=== PATIENT | male | born 1975 | race African-American/Black ===

== ENCOUNTER 2021-04-01 03:28 | Inpatient (IN) | payer MEDICAID ==
[~2021-04-01] VITALS: Ht 172.7 cm; Wt 167.5 kg
[2021-04-01] MEDS ORDERED: MORPHINE SULFATE 4 MG/ML CPJ (NOT FOR IM USE) IV STA (03:57)
[2021-04-01] MEDS ORDERED: ACETAMINOPHEN 325MG TABLET PO STA (03:57)
[2021-04-01] MEDS ORDERED: ONDANSETRON HCL 4MG/2ML INJ IV STA (03:57)
[2021-04-01] MEDS ORDERED: SODIUM CHLORIDE 0.9% 1,000 ML IV ONE (04:00)
[2021-04-01] MEDS ORDERED: VANCOMYCIN 1 G PREMIX 200 ML IV ONE (04:00)
[2021-04-01] MEDS ORDERED: PIPERACILLIN/TAZ 3.375G PREMIX 50 ML IV ONE (04:00)
[2021-04-01 04:28] LABS: BASOPHILS % 0.6 % (0.0-2.0); HEMATOCRIT. 35.2 % (42.0-52.0); HEMOGLOBIN. 11.4 g/dL (14.0-18.0); LYMPHOCYTES % 7.2 % (20.0-50.0); MEAN CORPUSCULAR HEMOGLOBIN 24.5 pg (28.0-32.0); MEAN CORPUSCULAR VOLUME 75.7 fL (80.0-94.0); MEAN PLATELET VOLUME 8.2 fl (7.4-10.4); MONOCYTES % 10.2 % (2.0-8.0); PLATELET 365 x1000/uL (130-400); RED BLOOD CELL COUNT 4.65 mill/uL (4.7-6.1); RED CELL DISTRIBUTION WIDTH 17.9 % (11.6-14.6)
[2021-04-01 04:36] LABS: INR 1.2; PROTHROMBIN TIME 12.3 sec (9.6-11.0)
[2021-04-01 05:07] LABS: CHLORIDE 92 mEq/L (98-107)
[2021-04-01 08:30] VITALS: BP 117/83
[2021-04-01 10:00] VITALS: BP 136/76
[2021-04-01] MEDS ORDERED: ONDANSETRON HCL 4MG/2ML INJ IV PRN (10:00)
[2021-04-01] MEDS ORDERED: DEXTROSE 50% WATER 50ML SYRINGE IV PRN (10:00)
[2021-04-01 10:50] LABS: CREATINE KINASE 400 IU/L (39-308)
[2021-04-01 12:00] VITALS: BP 142/87
[2021-04-01] MEDS ORDERED: PIPERACILLIN/TAZOBACTAM 3.375 G in DEXTROSE 5% WATER 50 ML IV SCH (12:00)
[2021-04-01] MEDS: SODIUM CHLORIDE 0.9% 1,000 ML IV SCH (12:29)
[2021-04-01] MEDS: BLOOD SUGAR DIAGNOSTIC STRIP TEST SCH ×3 (13:15→20:34)
[2021-04-01] MEDS: INSULIN LISPRO 100 UNITS/ML SUBCUT SCH ×3 (13:19→21:04)
[2021-04-01] MEDS: VANCOMYCIN 2,000 MG in DEXT 5% WATER 500 ML IV SCH ×2 (13:20→21:01)
[2021-04-01 16:00] VITALS: BP 130/84
[2021-04-01] MEDS ORDERED: CEFTRIAXONE 2 G PREMIX 50 ML IV SCH (17:45)
[2021-04-01] MEDS: HYDROCODONE/ACETAMINOPHEN 10/325MG TABLET PO PRN (19:31)
[2021-04-01 20:00] VITALS: BP 150/84
[2021-04-01] MEDS: CEFTRIAXONE 2 G in DEXTROSE 5% WATER 50 ML IV SCH (20:53)
[2021-04-01] MEDS: ACETAMINOPHEN 325MG TABLET PO PRN (20:53)
[2021-04-01] MEDS: INSULIN GLARGINE UD 100 UNITS/ML SYR SUBCUT SCH (21:03)
[2021-04-01] MEDS: LORAZEPAM 2MG/ML CPJ IV PRN (21:39)
[2021-04-02] VITALS: BP 129/71
[2021-04-02] MEDS: LORAZEPAM 2MG/ML CPJ IV PRN (03:58)
[2021-04-02 04:00] VITALS: BP_SYST 110; BP_SYST 156; BP_DIAS 60; BP_DIAS 80
[2021-04-02] MEDS: HYDROCODONE/ACETAMINOPHEN 10/325MG TABLET PO PRN ×2 (04:12→21:07)
[2021-04-02 06:08] LABS: HEMATOCRIT. 32.4 % (42.0-52.0); HEMOGLOBIN. 10.6 g/dL (14.0-18.0); MEAN CORPUSCULAR VOLUME 76.3 fL (80.0-94.0); MEAN PLATELET VOLUME 8.2 fl (7.4-10.4); PLATELET 321 x1000/uL (130-400); RED BLOOD CELL COUNT 4.25 mill/uL (4.7-6.1); RED CELL DISTRIBUTION WIDTH 18.3 % (11.6-14.6)
[2021-04-02] MEDS: BLOOD SUGAR DIAGNOSTIC STRIP TEST SCH ×4 (07:20→20:58)
[2021-04-02] MEDS: INSULIN LISPRO 100 UNITS/ML SUBCUT SCH ×4 (07:50→21:05)
[2021-04-02 08:00] VITALS: BP 148/90
[2021-04-02 08:46] LABS: CLARITY URINE CLOUDY (CLEAR); COLOR URINE YELLOW (YELLOW); KETONES URINE TRACE (NEGATIVE); LEUKOCYTE ESTERASE URINE NEGATIVE (NEGATIVE); NITRITE URINE NEGATIVE (NEGATIVE); OCCULT BLOOD URINE 1+ (NEGATIVE); PH URINE 5.5 (4.5-8.0); PROTEIN URINE 1+ (NEGATIVE); SPECIFIC GRAVITY URINE 1.025 (1.005-1.030); UROBILINOGEN URINE 0.2 E.U./dL (0.2-1.0)
[2021-04-02] MEDS: VANCOMYCIN 2,000 MG in DEXT 5% WATER 500 ML IV SCH (09:18)
[2021-04-02 09:47] LABS: *AMPHETAMINES SCREEN URINE NEGATIVE (NEGATIVE); *BARBITURATES SCREEN URINE NEGATIVE (NEGATIVE)
[2021-04-02 09:48] LABS: *BENZODIAZEPINES SCREEN URINE NEGATIVE (NEGATIVE); *COCAINE SCREEN URINE NEGATIVE (NEGATIVE); CANNABINOID URINE SCREEN NEGATIVE (NEGATIVE); METHADONE URINE SCREEN NEGATIVE (NEGATIVE); OPIATES URINE SCREEN PRESUMTIVE POSITIVE (NEGATIVE); PHENCYCLIDINE URINE SCREEN NEGATIVE (NEGATIVE)
[2021-04-02] MEDS: INSULIN GLARGINE UD 100 UNITS/ML SYR SUBCUT SCH ×2 (11:12→21:05)
[2021-04-02 12:00] VITALS: BP 135/90
[2021-04-02 13:31] LABS: PLATELET ESTIMATE NORMAL
[2021-04-02 16:00] VITALS: BP 130/85
[2021-04-02] MEDS: LINEZOLID 600 MG PREMIX 300 ML IV SCH (16:00)
[2021-04-02 20:00] VITALS: BP 158/91
[2021-04-02] MEDS: CEFTRIAXONE 2 G in DEXTROSE 5% WATER 50 ML IV SCH (20:50)
[2021-04-03] VITALS: BP 150/89
[2021-04-03] MEDS: SODIUM CHLORIDE 0.9% 1,000 ML IV SCH ×2 (01:02→06:45)
[2021-04-03 04:00] VITALS: BP 155/93
[2021-04-03] MEDS: BLOOD SUGAR DIAGNOSTIC STRIP TEST SCH ×4 (06:35→21:00)
[2021-04-03 07:09] LABS: BASOPHILS % 0.3 % (0.0-2.0); EOSINOPHILS % 0.9 % (0.0-5.0); HEMATOCRIT. 31.6 % (42.0-52.0); HEMOGLOBIN. 10.5 g/dL (14.0-18.0); LYMPHOCYTES % 7.7 % (20.0-50.0); MEAN CORPUSCULAR HEMOGLOBIN 25.2 pg (28.0-32.0); MEAN CORPUSCULAR VOLUME 75.7 fL (80.0-94.0); MEAN PLATELET VOLUME 8.3 fl (7.4-10.4); MONOCYTES % 10.8 % (2.0-8.0); NEUTROPHILS % 80.3 % (40.0-76.0); PLATELET 337 x1000/uL (130-400); RED BLOOD CELL COUNT 4.18 mill/uL (4.7-6.1); RED CELL DISTRIBUTION WIDTH 18.2 % (11.6-14.6)
[2021-04-03] MEDS: HYDROCODONE/ACETAMINOPHEN 10/325MG TABLET PO PRN ×2 (07:37→19:59)
[2021-04-03] MEDS: INSULIN LISPRO 100 UNITS/ML SUBCUT SCH ×4 (07:50→23:01)
[2021-04-03] MEDS: LINEZOLID 600 MG PREMIX 300 ML IV SCH ×3 (09:51→23:05)
[2021-04-03] MEDS: INSULIN GLARGINE UD 100 UNITS/ML SYR SUBCUT SCH ×2 (09:52→23:01)
[2021-04-03] MEDS ORDERED: IPRATROPIUM/ALBUTEROL 0.5-3(2.5)MG/3ML NEB HHN PRN (16:15)
[2021-04-03 17:05] LABS: BG BASE EXCESS -0.8 mmol/L (-2.0-2.0); BG CARBOXYHEMOGLOBIN 0.6 % (0.5-1.5); BG DEOXYHEMOGLOBIN 3.9 % (0.0-5.0); BG HCO3 ACT 22.5 mmol/L (22.0-26.0); BG METHEMOGLOBIN 0.3 % (0.0-1.5); BG OXYGEN SATURATION 96.1 % (92.0-98.5); BG OXYHEMOGLOBIN 95.2 % (94.0-97.0); BG PCO2 32.7 mmHg (35.0-45.0); BG PH 7.456 (7.350-7.450); BG PO2 79.2 mmHg (75.0-100.0); BG SAMPLE SITE LEFT RADIAL; BG TOTAL HEMOGLOBIN 11.6 g/dL (12.0-18.0); BG VENT MODE ROOM AIR
[2021-04-03 20:00] VITALS: BP 148/82
[2021-04-03] MEDS: CEFTRIAXONE 2 G in DEXTROSE 5% WATER 50 ML IV SCH (20:07)
[2021-04-04] VITALS (8 sets, daily range): BP systolic 129–168; BP diastolic 81–98
[2021-04-04] MEDS: HYDROCODONE/ACETAMINOPHEN 10/325MG TABLET PO PRN ×2 (04:45→21:04)
[2021-04-04 06:16] LABS: BASOPHILS % 0.5 % (0.0-2.0); EOSINOPHILS % 1.7 % (0.0-5.0); HEMOGLOBIN. 10.6 g/dL (14.0-18.0); LYMPHOCYTES % 7.9 % (20.0-50.0); MEAN CORPUSCULAR HEMOGLOBIN 25.8 pg (28.0-32.0); MEAN CORPUSCULAR VOLUME 75.7 fL (80.0-94.0); MEAN PLATELET VOLUME 8.4 fl (7.4-10.4); MONOCYTES % 11.3 % (2.0-8.0); NEUTROPHILS % 78.6 % (40.0-76.0); PLATELET 371 x1000/uL (130-400); RED CELL DISTRIBUTION WIDTH 18.5 % (11.6-14.6)
[2021-04-04 06:41] LABS: PHOSPHORUS 6.7 mg/dL (2.5-4.9)
[2021-04-04] MEDS: BLOOD SUGAR DIAGNOSTIC STRIP TEST SCH ×4 (07:02→20:31)
[2021-04-04] MEDS: INSULIN LISPRO 100 UNITS/ML SUBCUT SCH ×4 (07:02→21:06)
[2021-04-04] MEDS: LINEZOLID 600 MG PREMIX 300 ML IV SCH ×2 (09:48→21:55)
[2021-04-04] MEDS: INSULIN GLARGINE UD 100 UNITS/ML SYR SUBCUT SCH ×2 (09:49→21:05)
[2021-04-04] MEDS ORDERED: LIDOCAINE HCL 1% 20ML VIAL (Pyxis) INJ ONE (10:46)
[2021-04-04] MEDS ORDERED: VANCOMYCIN HCL 1 GM/VIAL ONE (10:46)
[2021-04-04] MEDS ORDERED: POLYMYXIN B SULFATE 500000 UNITS/VIAL ONE (10:47)
[2021-04-04] MEDS ORDERED: BUPIVACAINE HCL 0.5% (5MG/ML) 50ML ONE (10:47)
[2021-04-04] MEDS ORDERED: MIDAZOLAM HCL 2 MG/2 ML VIAL ONE (13:19)
[2021-04-04] MEDS ORDERED: MORPHINE SULFATE 2 MG/ML CPJ (NOT FOR IM USE) IV PRN (14:30)
[2021-04-04] MEDS ORDERED: HYDROMORPHONE HCL/PF 2MG/ML CPJ IV PRN (14:30)
[2021-04-04] MEDS ORDERED: ONDANSETRON HCL 4MG/2ML INJ IV PRN (14:30)
[2021-04-04] MEDS ORDERED: SODIUM CHLORIDE 0.9% 1,000 ML IV ONE (14:30)
[2021-04-04] MEDS ORDERED: LABETALOL 5MG/ML SYR 20 MG/4 ML SYRINGE IV SCH (15:00)
[2021-04-04] MEDS ORDERED: LABETALOL 5MG/ML SYR 20 MG/4 ML SYRINGE IV NR (15:00)
[2021-04-04] MEDS: MORPHINE SULFATE 2 MG/ML CPJ (NOT FOR IM USE) IV PRN ×2 (15:06→19:51)
[2021-04-04] MEDS ORDERED: LABETALOL 5MG/ML SYR 20 MG/4 ML SYRINGE IV PRN (15:30)
[2021-04-04] MEDS: HYDRALAZINE 20MG/ML VIAL IV PRN (17:47)
[2021-04-04] MEDS: CEFTRIAXONE 2 G in DEXTROSE 5% WATER 50 ML IV SCH (19:50)
[2021-04-04] MEDS: AMLODIPINE 5MG TABLET PO SCH (21:04)
[2021-04-04] MEDS: LACTULOSE 20G/30ML UDC PO PRN (21:41)
[2021-04-05] VITALS: BP 144/82
[2021-04-05 04:30] VITALS: BP 144/94
[2021-04-05] MEDS: MORPHINE SULFATE 2 MG/ML CPJ (NOT FOR IM USE) IV PRN ×3 (06:25→21:04)
[2021-04-05] MEDS: BLOOD SUGAR DIAGNOSTIC STRIP TEST SCH ×4 (07:20→21:04)
[2021-04-05] MEDS: INSULIN LISPRO 100 UNITS/ML SUBCUT SCH ×4 (07:50→21:38)
[2021-04-05 07:59] VITALS: BP 178/88
[2021-04-05 08:36] LABS: BASOPHILS % 0.3 % (0.0-2.0); EOSINOPHILS % 1.9 % (0.0-5.0); HEMATOCRIT. 30.3 % (42.0-52.0); HEMOGLOBIN. 10.3 g/dL (14.0-18.0); LYMPHOCYTES % 7.2 % (20.0-50.0); MEAN CORPUSCULAR HEMOGLOBIN 25.4 pg (28.0-32.0); MEAN PLATELET VOLUME 7.9 fl (7.4-10.4); MONOCYTES % 11.3 % (2.0-8.0); NEUTROPHILS % 79.3 % (40.0-76.0); PLATELET 446 x1000/uL (130-400); RED BLOOD CELL COUNT 4.05 mill/uL (4.7-6.1); RED CELL DISTRIBUTION WIDTH 18.9 % (11.6-14.6)
[2021-04-05] MEDS: AMLODIPINE 5MG TABLET PO SCH ×2 (08:36→20:31)
[2021-04-05] MEDS: LINEZOLID 600 MG PREMIX 300 ML IV SCH ×2 (08:37→21:36)
[2021-04-05 08:52] LABS: PHOSPHORUS 7.4 mg/dL (2.5-4.9)
[2021-04-05] MEDS: INSULIN GLARGINE UD 100 UNITS/ML SYR SUBCUT SCH ×2 (10:12→21:38)
[2021-04-05 12:12] VITALS: BP 168/99
[2021-04-05] MEDS: CALCIUM CARBONATE 500MG TABLET CHEW PO SCH ×2 (13:46→16:57)
[2021-04-05] MEDS: HYDROCODONE/ACETAMINOPHEN 10/325MG TABLET PO PRN ×2 (14:07→21:42)
[2021-04-05] MEDS: HYDRALAZINE HCL 25MG TABLET PO SCH ×2 (14:12→21:37)
[2021-04-05 15:42] VITALS: BP 171/98
[2021-04-05 20:00] VITALS: BP 174/89
[2021-04-05] MEDS: CEFTRIAXONE 2 G in DEXTROSE 5% WATER 50 ML IV SCH (20:31)
[2021-04-05] MEDS: BISACODYL 10MG SUPP PR PRN (20:48)
[2021-04-06] VITALS (7 sets, daily range): BP systolic 133–159; BP diastolic 71–92
[2021-04-06] MEDS: MORPHINE SULFATE 2 MG/ML CPJ (NOT FOR IM USE) IV PRN ×4 (01:19→20:51)
[2021-04-06] MEDS: HYDROCODONE/ACETAMINOPHEN 10/325MG TABLET PO PRN (04:22)
[2021-04-06] MEDS: HYDRALAZINE HCL 25MG TABLET PO SCH ×3 (06:06→21:23)
[2021-04-06 07:15] LABS: HEMATOCRIT. 32.1 % (42.0-52.0); HEMOGLOBIN. 10.8 g/dL (14.0-18.0); MEAN CORPUSCULAR VOLUME 74.7 fL (80.0-94.0); MEAN PLATELET VOLUME 7.9 fl (7.4-10.4); PLATELET 507 x1000/uL (130-400)
[2021-04-06] MEDS: BLOOD SUGAR DIAGNOSTIC STRIP TEST SCH ×4 (07:20→21:02)
[2021-04-06 07:22] LABS: CHLORIDE 94 mEq/L (98-107)
[2021-04-06 07:44] LABS: LDL CHOLESTEROL 74 mg/dL (5-100)
[2021-04-06 07:48] LABS: HDL CHOLESTEROL 19 mg/dL (40-59)
[2021-04-06] MEDS: CALCIUM CARBONATE 500MG TABLET CHEW PO SCH ×3 (07:50→17:27)
[2021-04-06] MEDS: INSULIN LISPRO 100 UNITS/ML SUBCUT SCH ×4 (07:50→21:00)
[2021-04-06 08:23] LABS: PHOSPHORUS 8.3 mg/dL (2.5-4.9)
[2021-04-06] MEDS: AMLODIPINE 5MG TABLET PO SCH ×2 (09:14→20:50)
[2021-04-06] MEDS: SODIUM HYPOCHLORITE 0.125% 473ML SOLUTION TOP SCH (09:14)
[2021-04-06] MEDS: INSULIN GLARGINE UD 100 UNITS/ML SYR SUBCUT SCH ×2 (09:16→21:24)
[2021-04-06] MEDS: LINEZOLID 600 MG PREMIX 300 ML IV SCH ×2 (09:22→21:29)
[2021-04-06 10:53] LABS: PLATELET ESTIMATE INCREASED
[2021-04-06] MEDS: CEFTRIAXONE 2 G in DEXTROSE 5% WATER 50 ML IV SCH (20:49)
[2021-04-07 00:30] VITALS: BP 146/81
[2021-04-07] MEDS: MORPHINE SULFATE 2 MG/ML CPJ (NOT FOR IM USE) IV PRN ×5 (00:57→22:30)
[2021-04-07 03:50] VITALS: BP 140/86
[2021-04-07] MEDS: HYDROCODONE/ACETAMINOPHEN 10/325MG TABLET PO PRN ×2 (03:53→08:55)
[2021-04-07] MEDS: HYDRALAZINE HCL 25MG TABLET PO SCH ×3 (05:13→22:06)
[2021-04-07] MEDS: BLOOD SUGAR DIAGNOSTIC STRIP TEST SCH ×4 (06:20→21:00)
[2021-04-07 07:03] LABS: BASOPHILS % 0.2 % (0.0-2.0); HEMATOCRIT. 31.6 % (42.0-52.0); HEMOGLOBIN. 10.6 g/dL (14.0-18.0); LYMPHOCYTES % 8.6 % (20.0-50.0); MEAN CORPUSCULAR HEMOGLOBIN 25.3 pg (28.0-32.0); MEAN CORPUSCULAR VOLUME 75.5 fL (80.0-94.0); MEAN PLATELET VOLUME 7.9 fl (7.4-10.4); MONOCYTES % 8.9 % (2.0-8.0); NEUTROPHILS % 80.3 % (40.0-76.0); PLATELET 511 x1000/uL (130-400); RED BLOOD CELL COUNT 4.19 mill/uL (4.7-6.1); RED CELL DISTRIBUTION WIDTH 19.1 % (11.6-14.6)
[2021-04-07] MEDS: INSULIN LISPRO 100 UNITS/ML SUBCUT SCH ×4 (07:45→21:00)
[2021-04-07 08:00] VITALS: BP 98/68
[2021-04-07 08:23] LABS: PHOSPHORUS 8.9 mg/dL (2.5-4.9)
[2021-04-07] MEDS: CALCIUM CARBONATE 500MG TABLET CHEW PO SCH ×3 (08:37→17:38)
[2021-04-07] MEDS: AMLODIPINE 5MG TABLET PO SCH ×2 (08:40→22:05)
[2021-04-07] MEDS: SODIUM HYPOCHLORITE 0.125% 473ML SOLUTION TOP SCH (08:44)
[2021-04-07] MEDS: LINEZOLID 600 MG PREMIX 300 ML IV SCH ×2 (08:45→22:29)
[2021-04-07] MEDS: INSULIN GLARGINE UD 100 UNITS/ML SYR SUBCUT SCH ×2 (10:23→22:09)
[2021-04-07 12:00] VITALS: BP 149/90
[2021-04-07] MEDS: HYDRALAZINE 20MG/ML VIAL IV PRN ×3 (13:56→14:53)
[2021-04-07 13:57] LABS: HEPATITIS B SURFACE ANTIGEN NEGATIVE
[2021-04-07 14:21] LABS: HEPATITIS A AB IGM NEGATIVE (NEGATIVE)
[2021-04-07 15:09] LABS: ANTI-MYELOPEROXIDASE AB < 9.0 U/mL (0.0-9.0); ANTI-PROTEINASE 3 ABS 7.6 U/mL (0.0-3.5)
[2021-04-07] MEDS ORDERED: SODIUM POLYSTYRENE SULFONATE 15 G/60 ML BOT PO NR (15:30)
[2021-04-07 16:00] VITALS: BP 147/90
[2021-04-07 20:31] VITALS: BP 134/77
[2021-04-07] MEDS: CEFTRIAXONE 2 G in DEXTROSE 5% WATER 50 ML IV SCH (21:56)
[2021-04-08 00:35] VITALS: BP 155/90
[2021-04-08] MEDS: HYDROCODONE/ACETAMINOPHEN 10/325MG TABLET PO PRN ×3 (02:40→20:25)
[2021-04-08] MEDS: HYDRALAZINE HCL 25MG TABLET PO SCH ×3 (06:13→20:25)
[2021-04-08 06:45] LABS: BASOPHILS % 0.2 % (0.0-2.0); EOSINOPHILS % 1.3 % (0.0-5.0); HEMATOCRIT. 32.8 % (42.0-52.0); HEMOGLOBIN. 10.6 g/dL (14.0-18.0); LYMPHOCYTES % 7.3 % (20.0-50.0); MEAN CORPUSCULAR HEMOGLOBIN 24.5 pg (28.0-32.0); MEAN PLATELET VOLUME 7.5 fl (7.4-10.4); MONOCYTES % 6.8 % (2.0-8.0); NEUTROPHILS % 84.4 % (40.0-76.0); PLATELET 524 x1000/uL (130-400); RED BLOOD CELL COUNT 4.32 mill/uL (4.7-6.1)
[2021-04-08] MEDS: BLOOD SUGAR DIAGNOSTIC STRIP TEST SCH ×4 (06:57→21:00)
[2021-04-08] MEDS: MORPHINE SULFATE 2 MG/ML CPJ (NOT FOR IM USE) IV PRN ×2 (06:57→16:21)
[2021-04-08] MEDS: INSULIN LISPRO 100 UNITS/ML SUBCUT SCH ×4 (07:38→21:00)
[2021-04-08 07:55] VITALS: BP 133/78
[2021-04-08] MEDS ORDERED: LIDOCAINE HCL 1% 20ML VIAL (Pyxis) INJ ONE (08:32)
[2021-04-08] MEDS: AMLODIPINE 5MG TABLET PO SCH ×2 (08:33→20:25)
[2021-04-08] MEDS: CALCIUM CARBONATE 500MG TABLET CHEW PO SCH ×3 (08:33→17:37)
[2021-04-08] MEDS: SODIUM HYPOCHLORITE 0.125% 473ML SOLUTION TOP SCH (09:00)
[2021-04-08 09:10] LABS: GLOMERULAR BASEMENT MEMB AB 4 units (0-20)
[2021-04-08 09:32] LABS: PHOSPHORUS 9.6 mg/dL (2.5-4.9)
[2021-04-08] MEDS: INSULIN GLARGINE UD 100 UNITS/ML SYR SUBCUT SCH ×2 (09:59→22:04)
[2021-04-08] MEDS: LINEZOLID 600 MG PREMIX 300 ML IV SCH ×2 (10:19→21:00)
[2021-04-08 11:48] VITALS: BP 124/71
[2021-04-08 13:11] LABS: ATYPICAL P-ANCA <1:20 titer (Neg:<1:20); CYTOPLASMIC C-ANCA <1:20 titer (Neg:<1:20); PERINUCLEAR P-ANCA <1:20 titer (Neg:<1:20)
[2021-04-08] MEDS: SEVELAMER CARBONATE 800 MG TABLET PO SCH ×2 (13:17→17:37)
[2021-04-08 15:58] VITALS: BP 158/74
[2021-04-08 20:00] VITALS: BP 153/98
[2021-04-08] MEDS: CEFTRIAXONE 2 G in DEXTROSE 5% WATER 50 ML IV SCH (20:26)
[2021-04-09 00:12] VITALS: BP 132/77
[2021-04-09 04:00] VITALS: BP 119/67
[2021-04-09] MEDS: CALCIUM CARBONATE 500MG TABLET CHEW PO SCH ×3 (06:52→17:30)
[2021-04-09] MEDS: SEVELAMER CARBONATE 800 MG TABLET PO SCH ×3 (06:53→17:30)
[2021-04-09] MEDS: BLOOD SUGAR DIAGNOSTIC STRIP TEST SCH ×4 (06:53→20:52)
[2021-04-09] MEDS: INSULIN LISPRO 100 UNITS/ML SUBCUT SCH ×4 (06:54→21:00)
[2021-04-09] MEDS: HYDRALAZINE HCL 25MG TABLET PO SCH ×3 (07:11→21:00)
[2021-04-09 08:05] VITALS: BP 136/81
[2021-04-09] MEDS: AMLODIPINE 5MG TABLET PO SCH ×2 (09:00→20:52)
[2021-04-09] MEDS: LINEZOLID 600 MG PREMIX 300 ML IV SCH ×2 (09:00→20:51)
[2021-04-09] MEDS: FOLIC ACID/VITAMIN B COMP W-C TABLET PO SCH (09:00)
[2021-04-09] MEDS: SODIUM HYPOCHLORITE 0.125% 473ML SOLUTION TOP SCH (09:01)
[2021-04-09] MEDS: INSULIN GLARGINE UD 100 UNITS/ML SYR SUBCUT SCH ×2 (10:00→22:00)
[2021-04-09 10:05] LABS: HEMATOCRIT. 29.8 % (42.0-52.0); HEMOGLOBIN. 10.2 g/dL (14.0-18.0); MEAN CORPUSCULAR HEMOGLOBIN 25.6 pg (28.0-32.0); MEAN CORPUSCULAR VOLUME 75.1 fL (80.0-94.0); MEAN PLATELET VOLUME 7.2 fl (7.4-10.4); PLATELET 485 x1000/uL (130-400); RED BLOOD CELL COUNT 3.97 mill/uL (4.7-6.1); RED CELL DISTRIBUTION WIDTH 18.5 % (11.6-14.6)
[2021-04-09 10:57] LABS: PHOSPHORUS 8.7 mg/dL (2.5-4.9)
[2021-04-09 12:00] VITALS: BP 169/68
[2021-04-09] MEDS: LACTULOSE 20G/30ML UDC PO PRN (13:56)
[2021-04-09] MEDS: MORPHINE SULFATE 2 MG/ML CPJ (NOT FOR IM USE) IV PRN (14:02)
[2021-04-09 15:07] LABS: PLATELET ESTIMATE INCREASED
[2021-04-09 16:30] VITALS: BP 127/82
[2021-04-09] MEDS: HYDROCODONE/ACETAMINOPHEN 10/325MG TABLET PO PRN (17:31)
[2021-04-09 20:00] VITALS: BP 133/90
[2021-04-09] MEDS: CEFTRIAXONE 2 G in DEXTROSE 5% WATER 50 ML IV SCH (20:51)
[2021-04-10] VITALS: BP 123/73
[2021-04-10] MEDS: HYDROCODONE/ACETAMINOPHEN 10/325MG TABLET PO PRN ×3 (02:07→19:05)
[2021-04-10 04:00] VITALS: BP 107/68
[2021-04-10] MEDS: HYDRALAZINE HCL 25MG TABLET PO SCH ×3 (05:02→22:00)
[2021-04-10] MEDS: BLOOD SUGAR DIAGNOSTIC STRIP TEST SCH ×4 (06:42→21:00)
[2021-04-10 07:52] LABS: BASOPHILS % 0.3 % (0.0-2.0); EOSINOPHILS % 1.5 % (0.0-5.0); HEMOGLOBIN. 10.2 g/dL (14.0-18.0); LYMPHOCYTES % 10.7 % (20.0-50.0); MEAN CORPUSCULAR HEMOGLOBIN 25.5 pg (28.0-32.0); MEAN CORPUSCULAR VOLUME 75.3 fL (80.0-94.0); MEAN PLATELET VOLUME 7.2 fl (7.4-10.4); NEUTROPHILS % 81.5 % (40.0-76.0); PLATELET 405 x1000/uL (130-400); RED BLOOD CELL COUNT 3.99 mill/uL (4.7-6.1); RED CELL DISTRIBUTION WIDTH 18.3 % (11.6-14.6)
[2021-04-10 08:00] VITALS: BP 121/70
[2021-04-10 08:16] LABS: PHOSPHORUS 6.7 mg/dL (2.5-4.9)
[2021-04-10] MEDS ORDERED: FUROSEMIDE 100MG/10ML VIAL IVP SCH (09:00)
[2021-04-10] MEDS: AMLODIPINE 5MG TABLET PO SCH ×2 (09:00→22:36)
[2021-04-10] MEDS: LACTULOSE 20G/30ML UDC PO PRN (09:10)
[2021-04-10] MEDS: FOLIC ACID/VITAMIN B COMP W-C TABLET PO SCH (09:11)
[2021-04-10] MEDS: SEVELAMER CARBONATE 800 MG TABLET PO SCH ×3 (09:11→19:02)
[2021-04-10] MEDS: CALCIUM CARBONATE 500MG TABLET CHEW PO SCH ×3 (09:11→19:02)
[2021-04-10] MEDS: LINEZOLID 600 MG PREMIX 300 ML IV SCH ×2 (09:12→22:34)
[2021-04-10] MEDS: SODIUM HYPOCHLORITE 0.125% 473ML SOLUTION TOP SCH (09:24)
[2021-04-10] MEDS: INSULIN LISPRO 100 UNITS/ML SUBCUT SCH ×4 (09:25→21:00)
[2021-04-10] MEDS: INSULIN GLARGINE UD 100 UNITS/ML SYR SUBCUT SCH ×2 (11:47→22:36)
[2021-04-10 12:00] VITALS: BP 127/60
[2021-04-10 16:00] VITALS: BP 125/76
[2021-04-10 20:00] VITALS: BP 116/70
[2021-04-10] MEDS: CEFTRIAXONE 2 G in DEXTROSE 5% WATER 50 ML IV SCH (20:09)
[2021-04-11] VITALS: BP 126/74
[2021-04-11] MEDS: HYDROCODONE/ACETAMINOPHEN 10/325MG TABLET PO PRN ×3 (00:30→19:01)
[2021-04-11 04:00] VITALS: BP 110/67
[2021-04-11] MEDS: HYDRALAZINE HCL 25MG TABLET PO SCH ×3 (05:09→21:09)
[2021-04-11 06:52] LABS: BASOPHILS % 0.4 % (0.0-2.0); EOSINOPHILS % 1.1 % (0.0-5.0); HEMATOCRIT. 29.6 % (42.0-52.0); HEMOGLOBIN. 9.7 g/dL (14.0-18.0); LYMPHOCYTES % 11.5 % (20.0-50.0); MEAN CORPUSCULAR HEMOGLOBIN 24.9 pg (28.0-32.0); MEAN CORPUSCULAR VOLUME 76.2 fL (80.0-94.0); MEAN PLATELET VOLUME 7.3 fl (7.4-10.4); MONOCYTES % 6.6 % (2.0-8.0); NEUTROPHILS % 80.4 % (40.0-76.0); PLATELET 444 x1000/uL (130-400); RED BLOOD CELL COUNT 3.88 mill/uL (4.7-6.1); RED CELL DISTRIBUTION WIDTH 18.6 % (11.6-14.6)
[2021-04-11 07:06] LABS: PHOSPHORUS 7.3 mg/dL (2.5-4.9)
[2021-04-11] MEDS: BLOOD SUGAR DIAGNOSTIC STRIP TEST SCH ×4 (07:20→21:12)
[2021-04-11] MEDS: INSULIN LISPRO 100 UNITS/ML SUBCUT SCH ×4 (07:50→21:11)
[2021-04-11 08:00] VITALS: BP 120/76
[2021-04-11] MEDS: SEVELAMER CARBONATE 800 MG TABLET PO SCH ×3 (08:59→16:42)
[2021-04-11] MEDS: LACTULOSE 20G/30ML UDC PO PRN (08:59)
[2021-04-11] MEDS: CALCIUM CARBONATE 500MG TABLET CHEW PO SCH (09:00)
[2021-04-11] MEDS: FOLIC ACID/VITAMIN B COMP W-C TABLET PO SCH (09:00)
[2021-04-11] MEDS: AMLODIPINE 5MG TABLET PO SCH ×2 (09:00→21:08)
[2021-04-11] MEDS: SODIUM HYPOCHLORITE 0.125% 473ML SOLUTION TOP SCH (09:00)
[2021-04-11] MEDS: LINEZOLID 600 MG PREMIX 300 ML IV SCH ×2 (09:11→21:59)
[2021-04-11] MEDS: INSULIN GLARGINE UD 100 UNITS/ML SYR SUBCUT SCH ×2 (11:20→21:12)
[2021-04-11 12:00] VITALS: BP 117/84
[2021-04-11] MEDS ORDERED: SODIUM POLYSTYRENE SULFONATE 15 G/60 ML BOT PO NR (12:00)
[2021-04-11 13:28] LABS: HEPATITIS B SURFACE ANTIGEN NEGATIVE
[2021-04-11 13:58] LABS: HEPATITIS A AB IGM NEGATIVE (NEGATIVE)
[2021-04-11 16:00] VITALS: BP 113/81
[2021-04-11 20:00] VITALS: BP 137/75
[2021-04-11] MEDS: CEFTRIAXONE 2 G in DEXTROSE 5% WATER 50 ML IV SCH (20:56)
[2021-04-12] VITALS: BP 131/74
[2021-04-12] MEDS: HYDROCODONE/ACETAMINOPHEN 10/325MG TABLET PO PRN ×4 (00:21→22:28)
[2021-04-12 04:00] VITALS: BP 124/66
[2021-04-12] MEDS: BLOOD SUGAR DIAGNOSTIC STRIP TEST SCH ×4 (06:20→21:00)
[2021-04-12] MEDS: HYDRALAZINE HCL 25MG TABLET PO SCH ×4 (06:26→22:31)
[2021-04-12 07:26] LABS: BASOPHILS % 0.3 % (0.0-2.0); EOSINOPHILS % 1.1 % (0.0-5.0); HEMATOCRIT. 27.9 % (42.0-52.0); HEMOGLOBIN. 9.3 g/dL (14.0-18.0); LYMPHOCYTES % 10.3 % (20.0-50.0); MEAN CORPUSCULAR HEMOGLOBIN 25.6 pg (28.0-32.0); MEAN CORPUSCULAR VOLUME 76.7 fL (80.0-94.0); MEAN PLATELET VOLUME 7.1 fl (7.4-10.4); MONOCYTES % 4.9 % (2.0-8.0); NEUTROPHILS % 83.4 % (40.0-76.0); PLATELET 410 x1000/uL (130-400); RED BLOOD CELL COUNT 3.64 mill/uL (4.7-6.1)
[2021-04-12] MEDS: INSULIN LISPRO 100 UNITS/ML SUBCUT SCH ×4 (07:50→21:00)
[2021-04-12 08:00] VITALS: BP 146/75
[2021-04-12 08:07] LABS: PHOSPHORUS 8.3 mg/dL (2.5-4.9)
[2021-04-12] MEDS: AMLODIPINE 5MG TABLET PO SCH ×3 (09:00→22:28)
[2021-04-12] MEDS: FOLIC ACID/VITAMIN B COMP W-C TABLET PO SCH (09:05)
[2021-04-12] MEDS: SEVELAMER CARBONATE 800 MG TABLET PO SCH ×3 (09:05→17:28)
[2021-04-12] MEDS: LINEZOLID 600 MG PREMIX 300 ML IV SCH (09:08)
[2021-04-12] MEDS: INSULIN GLARGINE UD 100 UNITS/ML SYR SUBCUT SCH ×2 (10:43→22:26)
[2021-04-12 12:00] VITALS: BP_SYST 146; BP_SYST 154; BP_DIAS 75; BP_DIAS 79
[2021-04-12] MEDS: SODIUM HYPOCHLORITE 0.125% 473ML SOLUTION TOP SCH (15:42)
[2021-04-12 16:00] VITALS: BP 159/83
[2021-04-12] MEDS ORDERED: VANCOMYCIN 1500MG in DEXTROSE 5% WATER 250ML IV SCH (16:00)
[2021-04-12 20:00] VITALS: BP 127/75
[2021-04-12] MEDS: CEFTRIAXONE 2 G in DEXTROSE 5% WATER 50 ML IV SCH (22:26)
[2021-04-12] MEDS: HYDRALAZINE 20MG/ML VIAL IV PRN (22:29)
[2021-04-13] VITALS: BP 120/81
[2021-04-13 04:00] VITALS: BP 141/87
[2021-04-13] MEDS: HYDROCODONE/ACETAMINOPHEN 10/325MG TABLET PO PRN ×4 (04:24→21:39)
[2021-04-13 05:42] LABS: BASOPHILS % 0.4 % (0.0-2.0); EOSINOPHILS % 1.1 % (0.0-5.0); HEMATOCRIT. 28.2 % (42.0-52.0); HEMOGLOBIN. 9.4 g/dL (14.0-18.0); LYMPHOCYTES % 10.6 % (20.0-50.0); MEAN CORPUSCULAR HEMOGLOBIN 25.5 pg (28.0-32.0); MEAN CORPUSCULAR VOLUME 76.2 fL (80.0-94.0); MEAN PLATELET VOLUME 7.1 fl (7.4-10.4); MONOCYTES % 6.2 % (2.0-8.0); NEUTROPHILS % 81.7 % (40.0-76.0); PLATELET 383 x1000/uL (130-400); RED CELL DISTRIBUTION WIDTH 18.8 % (11.6-14.6)
[2021-04-13 05:57] LABS: PHOSPHORUS 6.4 mg/dL (2.5-4.9)
[2021-04-13] MEDS: HYDRALAZINE HCL 25MG TABLET PO SCH ×3 (06:43→21:39)
[2021-04-13] MEDS: BLOOD SUGAR DIAGNOSTIC STRIP TEST SCH ×4 (06:43→20:32)
[2021-04-13] MEDS: INSULIN LISPRO 100 UNITS/ML SUBCUT SCH ×4 (07:50→20:32)
[2021-04-13 08:06] VITALS: BP 123/65
[2021-04-13] MEDS: FOLIC ACID/VITAMIN B COMP W-C TABLET PO SCH (08:10)
[2021-04-13] MEDS: SODIUM HYPOCHLORITE 0.125% 473ML SOLUTION TOP SCH (08:10)
[2021-04-13] MEDS: SEVELAMER CARBONATE 800 MG TABLET PO SCH ×3 (08:10→16:58)
[2021-04-13] MEDS: AMLODIPINE 5MG TABLET PO SCH ×2 (08:11→21:39)
[2021-04-13] MEDS: INSULIN GLARGINE UD 100 UNITS/ML SYR SUBCUT SCH ×2 (09:51→21:34)
[2021-04-13 12:12] VITALS: BP 116/76
[2021-04-13 16:14] VITALS: BP 124/80
[2021-04-13 20:00] VITALS: BP 118/83
[2021-04-13] MEDS: CEFTRIAXONE 2 G in DEXTROSE 5% WATER 50 ML IV SCH (20:21)
[2021-04-14] VITALS (8 sets, daily range): BP systolic 100–140; BP diastolic 71–86
[2021-04-14] MEDS: HYDROCODONE/ACETAMINOPHEN 10/325MG TABLET PO PRN ×4 (05:23→21:19)
[2021-04-14] MEDS: HYDRALAZINE HCL 25MG TABLET PO SCH ×3 (05:24→21:18)
[2021-04-14 06:09] LABS: BASOPHILS % 0.3 % (0.0-2.0); EOSINOPHILS % 1.9 % (0.0-5.0); HEMATOCRIT. 30.8 % (42.0-52.0); LYMPHOCYTES % 11.5 % (20.0-50.0); MEAN CORPUSCULAR HEMOGLOBIN 25.2 pg (28.0-32.0); MEAN CORPUSCULAR VOLUME 77.5 fL (80.0-94.0); MEAN PLATELET VOLUME 6.9 fl (7.4-10.4); MONOCYTES % 5.3 % (2.0-8.0); PLATELET 339 x1000/uL (130-400); RED BLOOD CELL COUNT 3.97 mill/uL (4.7-6.1); RED CELL DISTRIBUTION WIDTH 18.3 % (11.6-14.6)
[2021-04-14 06:13] LABS: PHOSPHORUS 7.4 mg/dL (2.5-4.9)
[2021-04-14] MEDS: BLOOD SUGAR DIAGNOSTIC STRIP TEST SCH ×4 (07:36→21:18)
[2021-04-14] MEDS: INSULIN LISPRO 100 UNITS/ML SUBCUT SCH ×4 (07:37→21:00)
[2021-04-14] MEDS: AMLODIPINE 5MG TABLET PO SCH ×2 (09:00→21:20)
[2021-04-14] MEDS: FOLIC ACID/VITAMIN B COMP W-C TABLET PO SCH (09:23)
[2021-04-14] MEDS: INSULIN GLARGINE UD 100 UNITS/ML SYR SUBCUT SCH ×2 (09:25→21:38)
[2021-04-14] MEDS: SEVELAMER CARBONATE 800 MG TABLET PO SCH ×3 (09:27→17:53)
[2021-04-14] MEDS: SODIUM HYPOCHLORITE 0.125% 473ML SOLUTION TOP SCH (09:43)
[2021-04-14] MEDS ORDERED: HEPARIN SODIUM 1,000 UNIT/1ML VIAL IV NR (13:00)
[2021-04-14] MEDS ORDERED: HYDRALAZINE 10 MG in SODIUM CHLORIDE 0.9% 49.5 ML IV PRN (15:15)
[2021-04-14] MEDS ORDERED: VANCOMYCIN 1250MG in DEXTROSE 5% WATER 250ML IV NR (17:00)
[2021-04-14] MEDS: LACTULOSE 20G/30ML UDC PO PRN (18:35)
[2021-04-14] MEDS: CEFTRIAXONE 2 G in DEXTROSE 5% WATER 50 ML IV SCH (21:19)
[2021-04-15] VITALS: BP 144/88
[2021-04-15] MEDS: HYDROCODONE/ACETAMINOPHEN 10/325MG TABLET PO PRN ×5 (01:48→21:21)
[2021-04-15 04:00] VITALS: BP 107/71
[2021-04-15] MEDS: HYDRALAZINE HCL 25MG TABLET PO SCH ×3 (06:00→23:11)
[2021-04-15] MEDS: BLOOD SUGAR DIAGNOSTIC STRIP TEST SCH ×4 (06:30→21:21)
[2021-04-15 06:32] LABS: PHOSPHORUS 5.9 mg/dL (2.5-4.9)
[2021-04-15 06:44] LABS: BASOPHILS % 0.4 % (0.0-2.0); EOSINOPHILS % 1.9 % (0.0-5.0); HEMATOCRIT. 29.2 % (42.0-52.0); HEMOGLOBIN. 9.5 g/dL (14.0-18.0); LYMPHOCYTES % 12.5 % (20.0-50.0); MEAN CORPUSCULAR HEMOGLOBIN 24.8 pg (28.0-32.0); MEAN CORPUSCULAR VOLUME 76.3 fL (80.0-94.0); MEAN PLATELET VOLUME 6.9 fl (7.4-10.4); MONOCYTES % 6.7 % (2.0-8.0); NEUTROPHILS % 78.5 % (40.0-76.0); PLATELET 325 x1000/uL (130-400); RED BLOOD CELL COUNT 3.82 mill/uL (4.7-6.1); RED CELL DISTRIBUTION WIDTH 18.6 % (11.6-14.6)
[2021-04-15] MEDS: INSULIN LISPRO 100 UNITS/ML SUBCUT SCH ×4 (07:31→21:00)
[2021-04-15 07:55] VITALS: BP 111/73
[2021-04-15] MEDS: FOLIC ACID/VITAMIN B COMP W-C TABLET PO SCH (08:46)
[2021-04-15] MEDS: SEVELAMER CARBONATE 800 MG TABLET PO SCH ×3 (08:46→17:12)
[2021-04-15] MEDS: AMLODIPINE 5MG TABLET PO SCH ×2 (08:46→21:22)
[2021-04-15] MEDS: SODIUM HYPOCHLORITE 0.125% 473ML SOLUTION TOP SCH (08:47)
[2021-04-15] MEDS: INSULIN GLARGINE UD 100 UNITS/ML SYR SUBCUT SCH ×2 (09:33→22:00)
[2021-04-15 11:47] VITALS: BP 111/75
[2021-04-15 16:00] VITALS: BP 105/69
[2021-04-15] MEDS: BISACODYL 10MG SUPP PR PRN (18:52)
[2021-04-15 22:02] VITALS: BP 136/82
[2021-04-16 01:19] VITALS: BP 136/82
[2021-04-16] MEDS: HYDROCODONE/ACETAMINOPHEN 10/325MG TABLET PO PRN ×2 (01:56→06:57)
[2021-04-16 04:00] VITALS: BP 112/81
[2021-04-16] MEDS: HYDRALAZINE HCL 25MG TABLET PO SCH ×3 (06:00→22:19)
[2021-04-16] MEDS: BLOOD SUGAR DIAGNOSTIC STRIP TEST SCH ×4 (06:33→20:45)
[2021-04-16] MEDS: INSULIN LISPRO 100 UNITS/ML SUBCUT SCH ×4 (07:50→20:45)
[2021-04-16 08:00] VITALS: BP 110/72
[2021-04-16] MEDS: SEVELAMER CARBONATE 800 MG TABLET PO SCH ×3 (08:39→17:36)
[2021-04-16] MEDS: AMLODIPINE 5MG TABLET PO SCH ×2 (08:40→20:59)
[2021-04-16] MEDS: SODIUM HYPOCHLORITE 0.125% 473ML SOLUTION TOP SCH (08:40)
[2021-04-16] MEDS: FOLIC ACID/VITAMIN B COMP W-C TABLET PO SCH (08:40)
[2021-04-16 09:50] LABS: BASOPHILS % 0.5 % (0.0-2.0); EOSINOPHILS % 1.5 % (0.0-5.0); HEMATOCRIT. 31.4 % (42.0-52.0); HEMOGLOBIN. 10.3 g/dL (14.0-18.0); LYMPHOCYTES % 9.2 % (20.0-50.0); MEAN CORPUSCULAR HEMOGLOBIN 25.4 pg (28.0-32.0); MEAN CORPUSCULAR VOLUME 77.4 fL (80.0-94.0); MEAN PLATELET VOLUME 6.8 fl (7.4-10.4); MONOCYTES % 7.2 % (2.0-8.0); NEUTROPHILS % 81.6 % (40.0-76.0); PLATELET 261 x1000/uL (130-400); RED BLOOD CELL COUNT 4.06 mill/uL (4.7-6.1); RED CELL DISTRIBUTION WIDTH 18.5 % (11.6-14.6)
[2021-04-16 10:19] LABS: PHOSPHORUS 4.8 mg/dL (2.5-4.9)
[2021-04-16 12:00] VITALS: BP 118/83
[2021-04-16] MEDS: INSULIN GLARGINE UD 100 UNITS/ML SYR SUBCUT SCH ×2 (12:20→22:00)
[2021-04-16 16:00] VITALS: BP 107/62
[2021-04-16 17:07] LABS: BG BASE EXCESS 1.6 mmol/L (-2.0-2.0); BG CARBOXYHEMOGLOBIN 0.1 % (0.5-1.5); BG DEOXYHEMOGLOBIN 6.2 % (0.0-5.0); BG FRACTION INSPIRED OXYGEN 21; BG HCO3 ACT 25.2 mmol/L (22.0-26.0); BG METHEMOGLOBIN 0.1 % (0.0-1.5); BG OXYGEN SATURATION 93.8 % (92.0-98.5); BG OXYHEMOGLOBIN 93.6 % (94.0-97.0); BG PCO2 35.6 mmHg (35.0-45.0); BG PH 7.467 (7.350-7.450); BG PO2 67.6 mmHg (75.0-100.0); BG SAMPLE SITE RIGHT RADIAL; BG TOTAL HEMOGLOBIN 10.9 g/dL (12.0-18.0); BG VENT MODE ROOM AIR
[2021-04-16 20:00] VITALS: BP 123/60
[2021-04-16] MEDS: CEFTRIAXONE 2 G in DEXTROSE 5% WATER 50 ML IV SCH (22:18)
[2021-04-17] VITALS: BP 102/56
[2021-04-17] MEDS: HYDROCODONE/ACETAMINOPHEN 10/325MG TABLET PO PRN ×4 (03:40→21:09)
[2021-04-17 04:00] VITALS: BP 102/56
[2021-04-17] MEDS: HYDRALAZINE HCL 25MG TABLET PO SCH ×3 (06:00→21:07)
[2021-04-17] MEDS: BLOOD SUGAR DIAGNOSTIC STRIP TEST SCH ×4 (06:37→21:49)
[2021-04-17] MEDS: INSULIN LISPRO 100 UNITS/ML SUBCUT SCH ×4 (07:50→21:00)
[2021-04-17 08:00] VITALS: BP_SYST 114; BP_SYST 124; BP_DIAS 77; BP_DIAS 94
[2021-04-17 08:11] LABS: BASOPHILS % 0.6 % (0.0-2.0); EOSINOPHILS % 1.4 % (0.0-5.0); HEMATOCRIT. 29.8 % (42.0-52.0); HEMOGLOBIN. 9.7 g/dL (14.0-18.0); LYMPHOCYTES % 12.9 % (20.0-50.0); MEAN CORPUSCULAR HEMOGLOBIN 25.2 pg (28.0-32.0); MEAN CORPUSCULAR VOLUME 77.4 fL (80.0-94.0); MEAN PLATELET VOLUME 6.8 fl (7.4-10.4); MONOCYTES % 6.6 % (2.0-8.0); NEUTROPHILS % 78.5 % (40.0-76.0); PLATELET 237 x1000/uL (130-400); RED BLOOD CELL COUNT 3.85 mill/uL (4.7-6.1); RED CELL DISTRIBUTION WIDTH 18.9 % (11.6-14.6)
[2021-04-17] MEDS: SEVELAMER CARBONATE 800 MG TABLET PO SCH ×3 (08:21→17:50)
[2021-04-17] MEDS: FOLIC ACID/VITAMIN B COMP W-C TABLET PO SCH (08:21)
[2021-04-17] MEDS: AMLODIPINE 5MG TABLET PO SCH ×2 (08:22→21:08)
[2021-04-17] MEDS: SODIUM HYPOCHLORITE 0.125% 473ML SOLUTION TOP SCH (08:22)
[2021-04-17 08:57] LABS: PHOSPHORUS 5.9 mg/dL (2.5-4.9)
[2021-04-17] MEDS: INSULIN GLARGINE UD 100 UNITS/ML SYR SUBCUT SCH ×2 (09:45→21:50)
[2021-04-17] MEDS ORDERED: VANCOMYCIN 1 G PREMIX 200 ML IV NR (11:30)
[2021-04-17 12:00] VITALS: BP 133/82
[2021-04-17] MEDS: NYSTATIN POWDER 15GM TOP SCH ×2 (13:00→17:00)
[2021-04-17 16:00] VITALS: BP 123/77
[2021-04-17 20:00] VITALS: BP 129/79
[2021-04-17] MEDS: CEFTRIAXONE 2 G in DEXTROSE 5% WATER 50 ML IV SCH (21:09)
[2021-04-18] VITALS: BP 100/68
[2021-04-18] MEDS: HYDROCODONE/ACETAMINOPHEN 10/325MG TABLET PO PRN ×3 (03:13→21:32)
[2021-04-18 04:00] VITALS: BP 128/74
[2021-04-18] MEDS: HYDRALAZINE HCL 25MG TABLET PO SCH ×2 (06:06→16:48)
[2021-04-18 06:19] LABS: HEMATOCRIT. 30.3 % (42.0-52.0); HEMOGLOBIN. 9.7 g/dL (14.0-18.0); MEAN CORPUSCULAR HEMOGLOBIN 24.7 pg (28.0-32.0); MEAN PLATELET VOLUME 7.3 fl (7.4-10.4); PLATELET 246 x1000/uL (130-400); RED BLOOD CELL COUNT 3.94 mill/uL (4.7-6.1); RED CELL DISTRIBUTION WIDTH 18.4 % (11.6-14.6)
[2021-04-18 06:33] LABS: PHOSPHORUS 6.4 mg/dL (2.5-4.9)
[2021-04-18] MEDS: BLOOD SUGAR DIAGNOSTIC STRIP TEST SCH ×4 (07:46→21:21)
[2021-04-18] MEDS: INSULIN LISPRO 100 UNITS/ML SUBCUT SCH ×4 (07:50→21:00)
[2021-04-18 08:00] VITALS: BP 116/80
[2021-04-18 09:21] LABS: PLATELET ESTIMATE NORMAL
[2021-04-18] MEDS: FOLIC ACID/VITAMIN B COMP W-C TABLET PO SCH (09:21)
[2021-04-18] MEDS: SEVELAMER CARBONATE 800 MG TABLET PO SCH ×3 (09:21→16:51)
[2021-04-18] MEDS: INSULIN GLARGINE UD 100 UNITS/ML SYR SUBCUT SCH ×2 (12:19→22:00)
[2021-04-18] MEDS: NYSTATIN POWDER 15GM TOP SCH ×3 (12:23→16:49)
[2021-04-18] MEDS: SODIUM HYPOCHLORITE 0.125% 473ML SOLUTION TOP SCH (12:23)
[2021-04-18] MEDS: AMLODIPINE 5MG TABLET PO SCH ×2 (12:26→21:00)
[2021-04-18 20:00] VITALS: BP 127/77
[2021-04-19] VITALS: BP 148/76
[2021-04-19] MEDS: CEFTRIAXONE 2 G in DEXTROSE 5% WATER 50 ML IV SCH ×2 (01:27→21:19)
[2021-04-19] MEDS: HYDRALAZINE HCL 25MG TABLET PO SCH ×4 (01:28→21:17)
[2021-04-19] MEDS: AMLODIPINE 5MG TABLET PO SCH ×2 (01:29→21:00)
[2021-04-19 04:00] VITALS: BP 98/61
[2021-04-19 06:55] LABS: HEMATOCRIT. 31.5 % (42.0-52.0); MEAN CORPUSCULAR HEMOGLOBIN 24.6 pg (28.0-32.0); MEAN CORPUSCULAR VOLUME 77.2 fL (80.0-94.0); MEAN PLATELET VOLUME 7.3 fl (7.4-10.4); PLATELET 226 x1000/uL (130-400); RED BLOOD CELL COUNT 4.08 mill/uL (4.7-6.1); RED CELL DISTRIBUTION WIDTH 18.8 % (11.6-14.6)
[2021-04-19 07:11] LABS: PHOSPHORUS 4.5 mg/dL (2.5-4.9)
[2021-04-19] MEDS: INSULIN LISPRO 100 UNITS/ML SUBCUT SCH ×4 (07:50→21:00)
[2021-04-19] MEDS: BLOOD SUGAR DIAGNOSTIC STRIP TEST SCH ×4 (07:59→21:16)
[2021-04-19 08:00] VITALS: BP 114/74
[2021-04-19] MEDS: SODIUM HYPOCHLORITE 0.125% 473ML SOLUTION TOP SCH (09:23)
[2021-04-19] MEDS: NYSTATIN POWDER 15GM TOP SCH ×3 (09:23→17:48)
[2021-04-19] MEDS: SEVELAMER CARBONATE 800 MG TABLET PO SCH ×3 (09:24→17:49)
[2021-04-19] MEDS: HYDROCODONE/ACETAMINOPHEN 10/325MG TABLET PO PRN (09:24)
[2021-04-19] MEDS: FOLIC ACID/VITAMIN B COMP W-C TABLET PO SCH (09:25)
[2021-04-19] MEDS: INSULIN GLARGINE UD 100 UNITS/ML SYR SUBCUT SCH ×2 (10:40→21:21)
[2021-04-19 12:00] VITALS: BP 98/60
[2021-04-19 13:48] LABS: PLATELET ESTIMATE NORMAL
[2021-04-19] MEDS ORDERED: NALOXONE HCL 0.4MG/ML VIAL IV PRN (19:30)
[2021-04-19 20:00] VITALS: BP 99/57
[2021-04-19 21:23] VITALS: BP 99/57
[2021-04-20] VITALS (7 sets, daily range): BP systolic 97–124; BP diastolic 55–76
[2021-04-20] MEDS: HYDRALAZINE HCL 25MG TABLET PO SCH ×3 (05:19→22:00)
[2021-04-20] MEDS: HYDROCODONE/ACETAMINOPHEN 10/325MG TABLET PO PRN (05:19)
[2021-04-20 07:13] LABS: BASOPHILS % 0.4 % (0.0-2.0); EOSINOPHILS % 1.2 % (0.0-5.0); HEMOGLOBIN. 9.2 g/dL (14.0-18.0); LYMPHOCYTES % 8.1 % (20.0-50.0); MEAN CORPUSCULAR HEMOGLOBIN 25.3 pg (28.0-32.0); MEAN CORPUSCULAR VOLUME 77.1 fL (80.0-94.0); MEAN PLATELET VOLUME 7.6 fl (7.4-10.4); MONOCYTES % 8.6 % (2.0-8.0); NEUTROPHILS % 81.7 % (40.0-76.0); PLATELET 227 x1000/uL (130-400); RED BLOOD CELL COUNT 3.64 mill/uL (4.7-6.1); RED CELL DISTRIBUTION WIDTH 19.1 % (11.6-14.6)
[2021-04-20 07:35] LABS: PHOSPHORUS 4.5 mg/dL (2.5-4.9)
[2021-04-20] MEDS: INSULIN LISPRO 100 UNITS/ML SUBCUT SCH ×4 (07:50→21:00)
[2021-04-20] MEDS: BLOOD SUGAR DIAGNOSTIC STRIP TEST SCH ×4 (08:08→21:00)
[2021-04-20] MEDS: AMLODIPINE 5MG TABLET PO SCH ×2 (08:45→21:00)
[2021-04-20] MEDS: FOLIC ACID/VITAMIN B COMP W-C TABLET PO SCH (08:45)
[2021-04-20] MEDS: SEVELAMER CARBONATE 800 MG TABLET PO SCH ×3 (08:45→17:56)
[2021-04-20] MEDS: NYSTATIN POWDER 15GM TOP SCH ×3 (08:46→17:56)
[2021-04-20] MEDS: SODIUM HYPOCHLORITE 0.125% 473ML SOLUTION TOP SCH (08:46)
[2021-04-20] MEDS: INSULIN GLARGINE UD 100 UNITS/ML SYR SUBCUT SCH ×2 (10:55→22:00)
[2021-04-20] MEDS ORDERED: VANCOMYCIN 1 G PREMIX 200 ML IV SCH (14:00)
[2021-04-20] MEDS: METRONIDAZOLE 500MG TABLET PO SCH ×2 (15:51→22:59)
[2021-04-20] MEDS: CEFTRIAXONE 2 G in DEXTROSE 5% WATER 50 ML IV SCH (22:57)
[2021-04-21] MEDS: HYDROCODONE/ACETAMINOPHEN 10/325MG TABLET PO PRN ×2 (03:49→21:16)
[2021-04-21] MEDS: METRONIDAZOLE 500MG TABLET PO SCH ×3 (06:00→21:14)
[2021-04-21] MEDS: HYDRALAZINE HCL 25MG TABLET PO SCH ×4 (06:00→21:26)
[2021-04-21] MEDS: INSULIN LISPRO 100 UNITS/ML SUBCUT SCH ×4 (07:50→21:00)
[2021-04-21 08:00] VITALS: BP 95/54
[2021-04-21] MEDS: BLOOD SUGAR DIAGNOSTIC STRIP TEST SCH ×4 (08:01→21:00)
[2021-04-21] MEDS: AMLODIPINE 5MG TABLET PO SCH ×2 (08:18→21:14)
[2021-04-21] MEDS: SODIUM HYPOCHLORITE 0.125% 473ML SOLUTION TOP SCH (09:07)
[2021-04-21] MEDS: NYSTATIN POWDER 15GM TOP SCH ×3 (09:07→17:00)
[2021-04-21] MEDS: SEVELAMER CARBONATE 800 MG TABLET PO SCH ×3 (09:08→18:17)
[2021-04-21] MEDS: FOLIC ACID/VITAMIN B COMP W-C TABLET PO SCH (09:08)
[2021-04-21 10:42] LABS: BASOPHILS % 0.1 % (0.0-2.0); EOSINOPHILS % 3.9 % (0.0-5.0); HEMATOCRIT. 25.3 % (42.0-52.0); HEMOGLOBIN. 8.3 g/dL (14.0-18.0); LYMPHOCYTES % 9.1 % (20.0-50.0); MEAN CORPUSCULAR HEMOGLOBIN 25.3 pg (28.0-32.0); MEAN CORPUSCULAR VOLUME 76.8 fL (80.0-94.0); MEAN PLATELET VOLUME 7.6 fl (7.4-10.4); MONOCYTES % 7.9 % (2.0-8.0); PLATELET 234 x1000/uL (130-400); RED BLOOD CELL COUNT 3.29 mill/uL (4.7-6.1); RED CELL DISTRIBUTION WIDTH 18.7 % (11.6-14.6)
[2021-04-21 10:57] LABS: PHOSPHORUS 3.8 mg/dL (2.5-4.9)
[2021-04-21 12:00] VITALS: BP 100/53
[2021-04-21] MEDS: INSULIN GLARGINE UD 100 UNITS/ML SYR SUBCUT SCH ×2 (12:36→22:00)
[2021-04-21] MEDS: VANCOMYCIN HCL 1000 MG/20 ML ORAL PO SCH ×2 (14:21→19:09)
[2021-04-21 16:00] VITALS: BP 99/60
[2021-04-21 20:00] VITALS: BP 102/59
[2021-04-21] MEDS: CEFTRIAXONE 2 G in DEXTROSE 5% WATER 50 ML IV SCH (21:14)
[2021-04-22] VITALS: BP 112/59
[2021-04-22] MEDS: VANCOMYCIN HCL 1000 MG/20 ML ORAL PO SCH ×4 (00:56→18:55)
[2021-04-22 04:00] VITALS: BP 110/55
[2021-04-22] MEDS: METRONIDAZOLE 500MG TABLET PO SCH ×3 (06:37→22:31)
[2021-04-22] MEDS: HYDRALAZINE HCL 25MG TABLET PO SCH ×3 (06:37→22:31)
[2021-04-22] MEDS: BLOOD SUGAR DIAGNOSTIC STRIP TEST SCH ×4 (07:39→21:00)
[2021-04-22] MEDS: INSULIN LISPRO 100 UNITS/ML SUBCUT SCH ×4 (07:50→21:00)
[2021-04-22] MEDS: FOLIC ACID/VITAMIN B COMP W-C TABLET PO SCH (08:38)
[2021-04-22] MEDS: SEVELAMER CARBONATE 800 MG TABLET PO SCH ×3 (08:44→18:38)
[2021-04-22] MEDS: AMLODIPINE 5MG TABLET PO SCH ×2 (08:46→22:31)
[2021-04-22] MEDS: SODIUM HYPOCHLORITE 0.125% 473ML SOLUTION TOP SCH (08:51)
[2021-04-22] MEDS: INSULIN GLARGINE UD 100 UNITS/ML SYR SUBCUT SCH ×2 (09:36→22:38)
[2021-04-22] MEDS: LOPERAMIDE HCL 2MG CAPSULE PO PRN ×2 (09:50→18:45)
[2021-04-22] MEDS: NYSTATIN POWDER 15GM TOP SCH ×3 (10:24→18:38)
[2021-04-22] MEDS: HYDROCODONE/ACETAMINOPHEN 10/325MG TABLET PO PRN (10:26)
[2021-04-22 11:49] LABS: BASOPHILS % 0.5 % (0.0-2.0); EOSINOPHILS % 6.3 % (0.0-5.0); HEMATOCRIT. 26.4 % (42.0-52.0); HEMOGLOBIN. 8.8 g/dL (14.0-18.0); LYMPHOCYTES % 12.3 % (20.0-50.0); MEAN CORPUSCULAR HEMOGLOBIN 25.6 pg (28.0-32.0); MEAN PLATELET VOLUME 7.5 fl (7.4-10.4); MONOCYTES % 14.2 % (2.0-8.0); NEUTROPHILS % 66.7 % (40.0-76.0); PLATELET 263 x1000/uL (130-400); RED BLOOD CELL COUNT 3.43 mill/uL (4.7-6.1); RED CELL DISTRIBUTION WIDTH 19.6 % (11.6-14.6)
[2021-04-22 12:00] VITALS: BP 109/55
[2021-04-22 12:14] LABS: PHOSPHORUS 4.8 mg/dL (2.5-4.9)
[2021-04-22] MEDS ORDERED: POTASSIUM CHLORIDE 20MEQ TABLET SR PO NR (13:30)
[2021-04-22 20:00] VITALS: BP 120/68
[2021-04-22] MEDS: CEFTRIAXONE 2 G in DEXTROSE 5% WATER 50 ML IV SCH (22:30)
[2021-04-23] VITALS: BP 134/84
[2021-04-23] MEDS ORDERED: POTASSIUM CHLORIDE 20MEQ TABLET SR PO NR ×2 (00:30→04:30)
[2021-04-23] MEDS: VANCOMYCIN HCL 1000 MG/20 ML ORAL PO SCH ×6 (00:41→23:41)
[2021-04-23 04:00] VITALS: BP 126/66
[2021-04-23] MEDS: ACETAMINOPHEN 325MG TABLET PO PRN (04:48)
[2021-04-23] MEDS: HYDRALAZINE HCL 25MG TABLET PO SCH ×3 (05:53→23:30)
[2021-04-23] MEDS: METRONIDAZOLE 500MG TABLET PO SCH ×3 (05:53→23:31)
[2021-04-23] MEDS: BLOOD SUGAR DIAGNOSTIC STRIP TEST SCH ×4 (06:36→21:00)
[2021-04-23] MEDS: INSULIN LISPRO 100 UNITS/ML SUBCUT SCH ×5 (07:33→21:00)
[2021-04-23 08:00] VITALS: BP 125/68
[2021-04-23] MEDS: FOLIC ACID/VITAMIN B COMP W-C TABLET PO SCH (08:40)
[2021-04-23] MEDS: SEVELAMER CARBONATE 800 MG TABLET PO SCH ×3 (08:41→18:11)
[2021-04-23] MEDS: AMLODIPINE 5MG TABLET PO SCH ×2 (08:41→23:31)
[2021-04-23] MEDS: SODIUM HYPOCHLORITE 0.125% 473ML SOLUTION TOP SCH (08:42)
[2021-04-23] MEDS: NYSTATIN POWDER 15GM TOP SCH ×3 (08:42→17:49)
[2021-04-23] MEDS: LOPERAMIDE HCL 2MG CAPSULE PO PRN (08:50)
[2021-04-23] MEDS: INSULIN GLARGINE UD 100 UNITS/ML SYR SUBCUT SCH ×2 (10:03→23:36)
[2021-04-23 12:00] VITALS: BP 127/72
[2021-04-23] MEDS: HYDROCODONE/ACETAMINOPHEN 10/325MG TABLET PO PRN ×2 (15:22→23:11)
[2021-04-23 16:00] VITALS: BP 107/65
[2021-04-23] MEDS ORDERED: VANCOMYCIN 500 MG PREMIX 100 ML IV NR (19:00)
[2021-04-23 19:48] LABS: BASOPHILS % 0.9 % (0.0-2.0); EOSINOPHILS % 5.2 % (0.0-5.0); HEMATOCRIT. 25.9 % (42.0-52.0); HEMOGLOBIN. 8.4 g/dL (14.0-18.0); LYMPHOCYTES % 12.5 % (20.0-50.0); MEAN CORPUSCULAR HEMOGLOBIN 25.2 pg (28.0-32.0); MEAN CORPUSCULAR VOLUME 78.3 fL (80.0-94.0); MEAN PLATELET VOLUME 7.3 fl (7.4-10.4); MONOCYTES % 14.5 % (2.0-8.0); NEUTROPHILS % 66.9 % (40.0-76.0); PLATELET 284 x1000/uL (130-400); RED BLOOD CELL COUNT 3.31 mill/uL (4.7-6.1)
[2021-04-23 19:54] LABS: PHOSPHORUS 4.2 mg/dL (2.5-4.9)
[2021-04-23] MEDS: CEFTRIAXONE 2 G in DEXTROSE 5% WATER 50 ML IV SCH (23:37)
[2021-04-24] MEDS: HYDRALAZINE HCL 25MG TABLET PO SCH ×4 (05:52→21:46)
[2021-04-24] MEDS: VANCOMYCIN HCL 1000 MG/20 ML ORAL PO SCH ×3 (05:52→17:54)
[2021-04-24] MEDS: METRONIDAZOLE 500MG TABLET PO SCH ×3 (05:52→21:44)
[2021-04-24] MEDS: HYDROCODONE/ACETAMINOPHEN 10/325MG TABLET PO PRN ×2 (05:52→17:59)
[2021-04-24 07:19] LABS: BASOPHILS % 0.6 % (0.0-2.0); EOSINOPHILS % 5.9 % (0.0-5.0); HEMATOCRIT. 27.2 % (42.0-52.0); HEMOGLOBIN. 8.7 g/dL (14.0-18.0); LYMPHOCYTES % 14.7 % (20.0-50.0); MEAN CORPUSCULAR HEMOGLOBIN 24.7 pg (28.0-32.0); MEAN CORPUSCULAR VOLUME 77.3 fL (80.0-94.0); MEAN PLATELET VOLUME 7.2 fl (7.4-10.4); MONOCYTES % 13.1 % (2.0-8.0); NEUTROPHILS % 65.7 % (40.0-76.0); PLATELET 298 x1000/uL (130-400); RED BLOOD CELL COUNT 3.52 mill/uL (4.7-6.1); RED CELL DISTRIBUTION WIDTH 18.7 % (11.6-14.6)
[2021-04-24 07:33] LABS: PHOSPHORUS 3.3 mg/dL (2.5-4.9)
[2021-04-24] MEDS: BLOOD SUGAR DIAGNOSTIC STRIP TEST SCH ×4 (07:37→21:45)
[2021-04-24] MEDS: INSULIN LISPRO 100 UNITS/ML SUBCUT SCH ×4 (07:50→21:00)
[2021-04-24 08:00] VITALS: BP 108/64
[2021-04-24] MEDS: NYSTATIN POWDER 15GM TOP SCH ×3 (09:00→17:53)
[2021-04-24] MEDS: SODIUM HYPOCHLORITE 0.125% 473ML SOLUTION TOP SCH (09:00)
[2021-04-24] MEDS: AMLODIPINE 5MG TABLET PO SCH ×2 (09:12→21:45)
[2021-04-24] MEDS: FOLIC ACID/VITAMIN B COMP W-C TABLET PO SCH (09:12)
[2021-04-24] MEDS: SEVELAMER CARBONATE 800 MG TABLET PO SCH ×3 (09:13→17:53)
[2021-04-24] MEDS ORDERED: POTASSIUM CHLORIDE 20MEQ TABLET SR PO SCH (09:30)
[2021-04-24] MEDS ORDERED: VANCOMYCIN 1250MG in DEXTROSE 5% WATER 250ML IV NR (11:00)
[2021-04-24] MEDS: INSULIN GLARGINE UD 100 UNITS/ML SYR SUBCUT SCH ×2 (12:12→21:47)
[2021-04-24 20:00] VITALS: BP 115/71
[2021-04-24] MEDS: CEFTRIAXONE 2 G in DEXTROSE 5% WATER 50 ML IV SCH (21:44)
[2021-04-25] VITALS: BP 105/58
[2021-04-25 04:00] VITALS: BP 120/71
[2021-04-25] MEDS: HYDRALAZINE HCL 25MG TABLET PO SCH ×3 (05:35→21:23)
[2021-04-25] MEDS: METRONIDAZOLE 500MG TABLET PO SCH ×3 (05:36→21:23)
[2021-04-25] MEDS: HYDROCODONE/ACETAMINOPHEN 10/325MG TABLET PO PRN ×2 (05:36→21:58)
[2021-04-25] MEDS: VANCOMYCIN HCL 1000 MG/20 ML ORAL PO SCH ×5 (05:38→18:00)
[2021-04-25 05:46] LABS: BASOPHILS % 0.6 % (0.0-2.0); EOSINOPHILS % 5.7 % (0.0-5.0); HEMATOCRIT. 28.3 % (42.0-52.0); HEMOGLOBIN. 8.9 g/dL (14.0-18.0); LYMPHOCYTES % 14.2 % (20.0-50.0); MEAN CORPUSCULAR HEMOGLOBIN 24.4 pg (28.0-32.0); MEAN CORPUSCULAR VOLUME 77.3 fL (80.0-94.0); MEAN PLATELET VOLUME 7.2 fl (7.4-10.4); MONOCYTES % 10.9 % (2.0-8.0); NEUTROPHILS % 68.6 % (40.0-76.0); PLATELET 332 x1000/uL (130-400); RED BLOOD CELL COUNT 3.67 mill/uL (4.7-6.1); RED CELL DISTRIBUTION WIDTH 19.1 % (11.6-14.6)
[2021-04-25 06:12] LABS: PHOSPHORUS 3.9 mg/dL (2.5-4.9)
[2021-04-25] MEDS: BLOOD SUGAR DIAGNOSTIC STRIP TEST SCH ×4 (07:20→21:24)
[2021-04-25] MEDS: INSULIN LISPRO 100 UNITS/ML SUBCUT SCH ×4 (07:50→21:24)
[2021-04-25] MEDS: SEVELAMER CARBONATE 800 MG TABLET PO SCH ×3 (07:50→18:42)
[2021-04-25 08:00] VITALS: BP 95/59
[2021-04-25] MEDS: NYSTATIN POWDER 15GM TOP SCH ×3 (09:00→18:46)
[2021-04-25] MEDS: AMLODIPINE 5MG TABLET PO SCH ×2 (09:00→21:24)
[2021-04-25] MEDS: SODIUM HYPOCHLORITE 0.125% 473ML SOLUTION TOP SCH (09:00)
[2021-04-25] MEDS: FOLIC ACID/VITAMIN B COMP W-C TABLET PO SCH (09:00)
[2021-04-25] MEDS ORDERED: POTASSIUM CHLORIDE 20MEQ TABLET SR PO SCH (10:00)
[2021-04-25] MEDS: INSULIN GLARGINE UD 100 UNITS/ML SYR SUBCUT SCH ×2 (10:00→22:00)
[2021-04-25 12:00] VITALS: BP 109/69
[2021-04-25 16:00] VITALS: BP 100/50
[2021-04-25] MEDS ORDERED: NALOXONE HCL 0.4MG/ML VIAL IV PRN (16:15)
[2021-04-25 20:00] VITALS: BP 141/81
[2021-04-25] MEDS: CEFEPIME 1,000 MG in DEXTROSE 5% WATER 50 ML IV SCH (21:23)
[2021-04-26] VITALS: BP 133/71
[2021-04-26 04:00] VITALS: BP 127/73
[2021-04-26] MEDS: HYDROCODONE/ACETAMINOPHEN 10/325MG TABLET PO PRN ×3 (04:37→22:13)
[2021-04-26] MEDS: VANCOMYCIN HCL 1000 MG/20 ML ORAL PO SCH ×4 (06:05→18:31)
[2021-04-26] MEDS: HYDRALAZINE HCL 25MG TABLET PO SCH ×3 (06:05→21:47)
[2021-04-26] MEDS: BLOOD SUGAR DIAGNOSTIC STRIP TEST SCH ×4 (06:53→21:47)
[2021-04-26] MEDS: INSULIN LISPRO 100 UNITS/ML SUBCUT SCH ×4 (07:42→21:00)
[2021-04-26 08:00] VITALS: BP 110/67
[2021-04-26] MEDS: FOLIC ACID/VITAMIN B COMP W-C TABLET PO SCH (09:12)
[2021-04-26] MEDS: AMLODIPINE 5MG TABLET PO SCH ×2 (09:13→21:46)
[2021-04-26] MEDS: SEVELAMER CARBONATE 800 MG TABLET PO SCH ×3 (09:13→18:25)
[2021-04-26] MEDS: SODIUM HYPOCHLORITE 0.125% 473ML SOLUTION TOP SCH (09:15)
[2021-04-26] MEDS: NYSTATIN POWDER 15GM TOP SCH ×3 (09:16→18:25)
[2021-04-26] MEDS: INSULIN GLARGINE UD 100 UNITS/ML SYR SUBCUT SCH ×2 (09:19→22:00)
[2021-04-26 11:13] LABS: BASOPHILS % 0.6 % (0.0-2.0); EOSINOPHILS % 4.9 % (0.0-5.0); HEMATOCRIT. 25.9 % (42.0-52.0); HEMOGLOBIN. 8.5 g/dL (14.0-18.0); LYMPHOCYTES % 13.5 % (20.0-50.0); MEAN CORPUSCULAR HEMOGLOBIN 25.4 pg (28.0-32.0); MEAN CORPUSCULAR VOLUME 76.8 fL (80.0-94.0); MEAN PLATELET VOLUME 7.1 fl (7.4-10.4); MONOCYTES % 10.4 % (2.0-8.0); NEUTROPHILS % 70.6 % (40.0-76.0); PLATELET 344 x1000/uL (130-400); RED BLOOD CELL COUNT 3.37 mill/uL (4.7-6.1); RED CELL DISTRIBUTION WIDTH 18.9 % (11.6-14.6)
[2021-04-26 11:44] LABS: PHOSPHORUS 3.3 mg/dL (2.5-4.9)
[2021-04-26 12:00] VITALS: BP 108/66
[2021-04-26 16:00] VITALS: BP 100/56
[2021-04-26] MEDS ORDERED: VANCOMYCIN 1250MG in DEXTROSE 5% WATER 250ML IV NR (17:00)
[2021-04-26 20:00] VITALS: BP 138/97
[2021-04-26] MEDS: CEFEPIME 1,000 MG in DEXTROSE 5% WATER 50 ML IV SCH (21:46)
[2021-04-27] VITALS: BP 142/96
[2021-04-27] MEDS: VANCOMYCIN HCL 1000 MG/20 ML ORAL PO SCH ×4 (00:21→17:14)
[2021-04-27 04:00] VITALS: BP 123/65
[2021-04-27 05:49] LABS: BASOPHILS % 0.7 % (0.0-2.0); EOSINOPHILS % 4.9 % (0.0-5.0); HEMATOCRIT. 31.7 % (42.0-52.0); HEMOGLOBIN. 10.1 g/dL (14.0-18.0); MEAN CORPUSCULAR HEMOGLOBIN 24.9 pg (28.0-32.0); MEAN CORPUSCULAR VOLUME 78.1 fL (80.0-94.0); MEAN PLATELET VOLUME 7.2 fl (7.4-10.4); MONOCYTES % 10.2 % (2.0-8.0); NEUTROPHILS % 69.2 % (40.0-76.0); PLATELET 382 x1000/uL (130-400); RED BLOOD CELL COUNT 4.06 mill/uL (4.7-6.1); RED CELL DISTRIBUTION WIDTH 18.9 % (11.6-14.6)
[2021-04-27 06:06] LABS: PHOSPHORUS 3.9 mg/dL (2.5-4.9)
[2021-04-27] MEDS: HYDRALAZINE HCL 25MG TABLET PO SCH ×3 (06:44→21:22)
[2021-04-27] MEDS: INSULIN LISPRO 100 UNITS/ML SUBCUT SCH ×4 (07:50→21:00)
[2021-04-27 08:00] VITALS: BP 130/68
[2021-04-27] MEDS: BLOOD SUGAR DIAGNOSTIC STRIP TEST SCH ×4 (08:09→21:31)
[2021-04-27] MEDS: FOLIC ACID/VITAMIN B COMP W-C TABLET PO SCH (09:02)
[2021-04-27] MEDS: AMLODIPINE 5MG TABLET PO SCH ×2 (09:02→21:56)
[2021-04-27] MEDS: SEVELAMER CARBONATE 800 MG TABLET PO SCH ×3 (09:03→17:05)
[2021-04-27] MEDS: SODIUM HYPOCHLORITE 0.125% 473ML SOLUTION TOP SCH (09:19)
[2021-04-27] MEDS: HYDROCODONE/ACETAMINOPHEN 10/325MG TABLET PO PRN ×2 (09:20→17:57)
[2021-04-27] MEDS: INSULIN GLARGINE UD 100 UNITS/ML SYR SUBCUT SCH ×2 (09:28→21:19)
[2021-04-27] MEDS: NYSTATIN POWDER 15GM TOP SCH ×3 (10:53→17:05)
[2021-04-27 12:00] VITALS: BP 130/79
[2021-04-27 16:00] VITALS: BP 140/76
[2021-04-27 20:00] VITALS: BP 100/55
[2021-04-27] MEDS: CEFEPIME 1,000 MG in DEXTROSE 5% WATER 50 ML IV SCH (21:15)
[2021-04-28] VITALS: BP 120/64
[2021-04-28] MEDS: VANCOMYCIN HCL 1000 MG/20 ML ORAL PO SCH ×4 (00:05→18:00)
[2021-04-28 04:00] VITALS: BP 115/60
[2021-04-28] MEDS: HYDRALAZINE HCL 25MG TABLET PO SCH ×3 (06:29→21:44)
[2021-04-28 06:47] LABS: BASOPHILS % 0.3 % (0.0-2.0); EOSINOPHILS % 3.8 % (0.0-5.0); HEMATOCRIT. 29.6 % (42.0-52.0); HEMOGLOBIN. 9.6 g/dL (14.0-18.0); LYMPHOCYTES % 12.8 % (20.0-50.0); MEAN CORPUSCULAR HEMOGLOBIN 25.1 pg (28.0-32.0); MEAN CORPUSCULAR VOLUME 77.2 fL (80.0-94.0); MEAN PLATELET VOLUME 7.3 fl (7.4-10.4); MONOCYTES % 9.8 % (2.0-8.0); NEUTROPHILS % 73.3 % (40.0-76.0); PLATELET 396 x1000/uL (130-400); RED BLOOD CELL COUNT 3.84 mill/uL (4.7-6.1); RED CELL DISTRIBUTION WIDTH 19.4 % (11.6-14.6)
[2021-04-28] MEDS: BLOOD SUGAR DIAGNOSTIC STRIP TEST SCH ×4 (07:03→21:45)
[2021-04-28 07:18] LABS: PHOSPHORUS 4.4 mg/dL (2.5-4.9)
[2021-04-28] MEDS: INSULIN LISPRO 100 UNITS/ML SUBCUT SCH ×4 (07:50→21:00)
[2021-04-28 08:00] VITALS: BP 98/63
[2021-04-28] MEDS: SEVELAMER CARBONATE 800 MG TABLET PO SCH ×2 (08:20→12:39)
[2021-04-28] MEDS: AMLODIPINE 5MG TABLET PO SCH (08:20)
[2021-04-28] MEDS: NYSTATIN POWDER 15GM TOP SCH ×3 (08:21→17:40)
[2021-04-28] MEDS: SODIUM HYPOCHLORITE 0.125% 473ML SOLUTION TOP SCH (08:21)
[2021-04-28] MEDS: FOLIC ACID/VITAMIN B COMP W-C TABLET PO SCH (08:21)
[2021-04-28] MEDS: INSULIN GLARGINE UD 100 UNITS/ML SYR SUBCUT SCH ×2 (09:59→21:51)
[2021-04-28 12:00] VITALS: BP 125/72
[2021-04-28] MEDS: HYDROCODONE/ACETAMINOPHEN 10/325MG TABLET PO PRN ×2 (13:43→21:45)
[2021-04-28 16:00] VITALS: BP 111/67
[2021-04-28] MEDS ORDERED: VANCOMYCIN 500 MG PREMIX 100 ML IV SCH (17:00)
[2021-04-28 20:00] VITALS: BP 105/62
[2021-04-28] MEDS: CEFEPIME 1,000 MG in DEXTROSE 5% WATER 50 ML IV SCH (21:45)
[2021-04-29] VITALS: BP 105/54
[2021-04-29] MEDS: VANCOMYCIN HCL 1000 MG/20 ML ORAL PO SCH ×4 (05:00→17:37)
[2021-04-29] MEDS: HYDROCODONE/ACETAMINOPHEN 10/325MG TABLET PO PRN (05:02)
[2021-04-29 05:05] LABS: BASOPHILS % 0.6 % (0.0-2.0); EOSINOPHILS % 3.4 % (0.0-5.0); HEMATOCRIT. 28.9 % (42.0-52.0); HEMOGLOBIN. 9.2 g/dL (14.0-18.0); LYMPHOCYTES % 9.9 % (20.0-50.0); MEAN CORPUSCULAR HEMOGLOBIN 24.4 pg (28.0-32.0); MEAN CORPUSCULAR VOLUME 76.7 fL (80.0-94.0); MEAN PLATELET VOLUME 7.3 fl (7.4-10.4); MONOCYTES % 9.2 % (2.0-8.0); NEUTROPHILS % 76.9 % (40.0-76.0); PLATELET 432 x1000/uL (130-400); RED BLOOD CELL COUNT 3.76 mill/uL (4.7-6.1); RED CELL DISTRIBUTION WIDTH 18.9 % (11.6-14.6)
[2021-04-29] MEDS: HYDRALAZINE HCL 25MG TABLET PO SCH ×3 (05:15→21:20)
[2021-04-29 05:58] LABS: PHOSPHORUS 4.8 mg/dL (2.5-4.9)
[2021-04-29] MEDS: BLOOD SUGAR DIAGNOSTIC STRIP TEST SCH ×4 (07:45→21:22)
[2021-04-29] MEDS: INSULIN LISPRO 100 UNITS/ML SUBCUT SCH ×4 (07:47→21:00)
[2021-04-29 08:00] VITALS: BP 108/74
[2021-04-29] MEDS: SODIUM HYPOCHLORITE 0.125% 473ML SOLUTION TOP SCH (09:02)
[2021-04-29] MEDS: NYSTATIN POWDER 15GM TOP SCH ×3 (09:02→17:37)
[2021-04-29] MEDS: FOLIC ACID/VITAMIN B COMP W-C TABLET PO SCH (09:07)
[2021-04-29] MEDS: INSULIN GLARGINE UD 100 UNITS/ML SYR SUBCUT SCH ×2 (10:06→21:22)
[2021-04-29 12:00] VITALS: BP 117/76
[2021-04-29] MEDS ORDERED: VANCOMYCIN 750 MG PREMIX 150 ML IV SCH (12:00)
[2021-04-29 16:00] VITALS: BP 140/69
[2021-04-29] MEDS ORDERED: DEXTROSE 50% WATER 50ML SYRINGE IV PRN (17:00)
[2021-04-29 20:00] VITALS: BP 116/63
[2021-04-29] MEDS: CEFEPIME 1,000 MG in DEXTROSE 5% WATER 50 ML IV SCH (21:21)
[2021-04-30] VITALS: BP 124/82
[2021-04-30] MEDS: VANCOMYCIN HCL 1000 MG/20 ML ORAL PO SCH ×4 (00:53→17:16)
[2021-04-30 04:00] VITALS: BP 119/69
[2021-04-30] MEDS: HYDRALAZINE HCL 25MG TABLET PO SCH ×3 (05:31→23:03)
[2021-04-30] MEDS: BLOOD SUGAR DIAGNOSTIC STRIP TEST SCH ×4 (06:38→21:00)
[2021-04-30] MEDS: HYDROCODONE/ACETAMINOPHEN 10/325MG TABLET PO PRN ×2 (06:38→14:57)
[2021-04-30 07:00] LABS: BASOPHILS % 0.6 % (0.0-2.0); EOSINOPHILS % 2.9 % (0.0-5.0); HEMATOCRIT. 29.4 % (42.0-52.0); HEMOGLOBIN. 9.5 g/dL (14.0-18.0); LYMPHOCYTES % 12.2 % (20.0-50.0); MEAN CORPUSCULAR HEMOGLOBIN 24.9 pg (28.0-32.0); MEAN PLATELET VOLUME 7.3 fl (7.4-10.4); MONOCYTES % 10.8 % (2.0-8.0); NEUTROPHILS % 73.5 % (40.0-76.0); PLATELET 430 x1000/uL (130-400); RED BLOOD CELL COUNT 3.81 mill/uL (4.7-6.1)
[2021-04-30 07:22] LABS: PHOSPHORUS 4.7 mg/dL (2.5-4.9)
[2021-04-30] MEDS: INSULIN LISPRO 100 UNITS/ML SUBCUT SCH ×4 (07:46→21:00)
[2021-04-30 08:00] VITALS: BP 128/76
[2021-04-30] MEDS: FOLIC ACID/VITAMIN B COMP W-C TABLET PO SCH (08:26)
[2021-04-30] MEDS: NYSTATIN POWDER 15GM TOP SCH ×3 (08:27→17:16)
[2021-04-30] MEDS: SODIUM HYPOCHLORITE 0.125% 473ML SOLUTION TOP SCH (08:27)
[2021-04-30 12:00] VITALS: BP 118/76
[2021-04-30 16:00] VITALS: BP 129/79
[2021-04-30] MEDS: VANCOMYCIN 1500MG in DEXTROSE 5% WATER 250ML IV SCH (17:16)
[2021-04-30 20:00] VITALS: BP 123/79
[2021-04-30] MEDS: CEFEPIME 1,000 MG in DEXTROSE 5% WATER 50 ML IV SCH (20:45)
[2021-05-01] VITALS: BP 144/83
[2021-05-01 04:00] VITALS: BP 137/86
[2021-05-01 06:10] LABS: BASOPHILS % 0.7 % (0.0-2.0); EOSINOPHILS % 2.8 % (0.0-5.0); HEMATOCRIT. 28.5 % (42.0-52.0); HEMOGLOBIN. 9.3 g/dL (14.0-18.0); LYMPHOCYTES % 11.8 % (20.0-50.0); MEAN CORPUSCULAR HEMOGLOBIN 24.9 pg (28.0-32.0); MEAN CORPUSCULAR VOLUME 76.4 fL (80.0-94.0); MEAN PLATELET VOLUME 7.2 fl (7.4-10.4); MONOCYTES % 9.6 % (2.0-8.0); NEUTROPHILS % 75.1 % (40.0-76.0); PLATELET 483 x1000/uL (130-400); RED BLOOD CELL COUNT 3.73 mill/uL (4.7-6.1); RED CELL DISTRIBUTION WIDTH 18.8 % (11.6-14.6)
[2021-05-01 06:28] LABS: PHOSPHORUS 4.8 mg/dL (2.5-4.9)
[2021-05-01] MEDS: HYDRALAZINE HCL 25MG TABLET PO SCH ×3 (06:34→22:36)
[2021-05-01] MEDS: BLOOD SUGAR DIAGNOSTIC STRIP TEST SCH ×4 (07:30→20:58)
[2021-05-01] MEDS: INSULIN LISPRO 100 UNITS/ML SUBCUT SCH ×4 (07:50→20:58)
[2021-05-01 08:00] VITALS: BP 139/83
[2021-05-01] MEDS: NYSTATIN POWDER 15GM TOP SCH ×3 (09:53→17:52)
[2021-05-01] MEDS: FOLIC ACID/VITAMIN B COMP W-C TABLET PO SCH (09:53)
[2021-05-01] MEDS: SODIUM HYPOCHLORITE 0.125% 473ML SOLUTION TOP SCH (09:53)
[2021-05-01] MEDS: HYDROCODONE/ACETAMINOPHEN 10/325MG TABLET PO PRN ×2 (10:54→20:55)
[2021-05-01 12:00] VITALS: BP 125/86
[2021-05-01 16:00] VITALS: BP 128/82
[2021-05-01 20:00] VITALS: BP 145/71
[2021-05-01] MEDS: CEFEPIME 1,000 MG in DEXTROSE 5% WATER 50 ML IV SCH (20:55)
[2021-05-02] VITALS: BP 144/82
[2021-05-02 04:00] VITALS: BP 138/72
[2021-05-02] MEDS: HYDRALAZINE HCL 25MG TABLET PO SCH ×3 (06:40→21:01)
[2021-05-02] MEDS: HYDROCODONE/ACETAMINOPHEN 10/325MG TABLET PO PRN ×2 (06:40→13:43)
[2021-05-02] MEDS: VANCOMYCIN 1500MG in DEXTROSE 5% WATER 250ML IV SCH (06:41)
[2021-05-02 07:27] LABS: BASOPHILS % 0.8 % (0.0-2.0); EOSINOPHILS % 2.9 % (0.0-5.0); HEMOGLOBIN. 9.1 g/dL (14.0-18.0); LYMPHOCYTES % 15.3 % (20.0-50.0); MEAN CORPUSCULAR HEMOGLOBIN 24.8 pg (28.0-32.0); MEAN CORPUSCULAR VOLUME 76.3 fL (80.0-94.0); MEAN PLATELET VOLUME 7.3 fl (7.4-10.4); MONOCYTES % 10.5 % (2.0-8.0); NEUTROPHILS % 70.5 % (40.0-76.0); PLATELET 480 x1000/uL (130-400); RED BLOOD CELL COUNT 3.67 mill/uL (4.7-6.1); RED CELL DISTRIBUTION WIDTH 19.1 % (11.6-14.6)
[2021-05-02] MEDS: INSULIN LISPRO 100 UNITS/ML SUBCUT SCH ×4 (07:50→21:00)
[2021-05-02 07:51] LABS: VANCOMYCIN TROUGH 17.7 ug/mL (5.0-10.0)
[2021-05-02] MEDS: BLOOD SUGAR DIAGNOSTIC STRIP TEST SCH ×4 (07:55→21:26)
[2021-05-02 08:00] VITALS: BP 142/77
[2021-05-02] MEDS: FOLIC ACID/VITAMIN B COMP W-C TABLET PO SCH (09:17)
[2021-05-02] MEDS: NYSTATIN POWDER 15GM TOP SCH ×3 (09:22→17:00)
[2021-05-02] MEDS: SODIUM HYPOCHLORITE 0.125% 473ML SOLUTION TOP SCH (09:22)
[2021-05-02 12:00] VITALS: BP 159/95
[2021-05-02 15:58] VITALS: BP 94/18
[2021-05-02 20:00] VITALS: BP 130/81
[2021-05-02] MEDS: CEFEPIME 1,000 MG in DEXTROSE 5% WATER 50 ML IV SCH (21:00)
[2021-05-03] VITALS: BP 128/85
[2021-05-03] MEDS: HYDROCODONE/ACETAMINOPHEN 10/325MG TABLET PO PRN ×3 (00:50→20:43)
[2021-05-03 04:00] VITALS: BP 129/75
[2021-05-03] MEDS: HYDRALAZINE HCL 25MG TABLET PO SCH ×2 (05:54→14:00)
[2021-05-03] MEDS: BLOOD SUGAR DIAGNOSTIC STRIP TEST SCH ×4 (07:01→21:00)
[2021-05-03 07:09] LABS: BASOPHILS % 0.9 % (0.0-2.0); EOSINOPHILS % 2.7 % (0.0-5.0); HEMATOCRIT. 28.5 % (42.0-52.0); HEMOGLOBIN. 9.4 g/dL (14.0-18.0); LYMPHOCYTES % 15.9 % (20.0-50.0); MEAN CORPUSCULAR VOLUME 76.1 fL (80.0-94.0); MEAN PLATELET VOLUME 7.2 fl (7.4-10.4); NEUTROPHILS % 69.5 % (40.0-76.0); PLATELET 494 x1000/uL (130-400); RED BLOOD CELL COUNT 3.75 mill/uL (4.7-6.1)
[2021-05-03 07:42] LABS: PHOSPHORUS 5.2 mg/dL (2.5-4.9)
[2021-05-03] MEDS: INSULIN LISPRO 100 UNITS/ML SUBCUT SCH ×4 (07:50→21:00)
[2021-05-03 08:00] VITALS: BP 148/86
[2021-05-03] MEDS: FOLIC ACID/VITAMIN B COMP W-C TABLET PO SCH (08:58)
[2021-05-03 12:00] VITALS: BP 120/82
[2021-05-03] MEDS ORDERED: LIDOCAINE HCL 1% 20ML VIAL (Pyxis) INJ ONE (12:54)
[2021-05-03] MEDS: VANCOMYCIN 1500MG in DEXTROSE 5% WATER 250ML IV SCH (18:03)
[2021-05-03] MEDS: NYSTATIN POWDER 15GM TOP SCH (18:12)
[2021-05-03 20:00] VITALS: BP 116/78
[2021-05-03] MEDS ORDERED: NALOXONE HCL 0.4MG/ML VIAL IV PRN (20:00)
[2021-05-03] MEDS: CEFEPIME 1,000 MG in DEXTROSE 5% WATER 50 ML IV SCH (22:23)
[2021-05-04] VITALS: BP 131/82
[2021-05-04 04:00] VITALS: BP 128/81
[2021-05-04] MEDS: HYDROCODONE/ACETAMINOPHEN 10/325MG TABLET PO PRN ×2 (05:09→18:35)
[2021-05-04] MEDS: BLOOD SUGAR DIAGNOSTIC STRIP TEST SCH ×4 (06:58→21:26)
[2021-05-04] MEDS: INSULIN LISPRO 100 UNITS/ML SUBCUT SCH ×4 (07:28→21:26)
[2021-05-04 07:42] LABS: BASOPHILS % 0.9 % (0.0-2.0); EOSINOPHILS % 2.6 % (0.0-5.0); HEMATOCRIT. 30.7 % (42.0-52.0); LYMPHOCYTES % 17.5 % (20.0-50.0); MEAN CORPUSCULAR HEMOGLOBIN 24.8 pg (28.0-32.0); MEAN CORPUSCULAR VOLUME 76.4 fL (80.0-94.0); MEAN PLATELET VOLUME 7.4 fl (7.4-10.4); MONOCYTES % 12.1 % (2.0-8.0); NEUTROPHILS % 66.9 % (40.0-76.0); PLATELET 494 x1000/uL (130-400); RED BLOOD CELL COUNT 4.02 mill/uL (4.7-6.1); RED CELL DISTRIBUTION WIDTH 19.2 % (11.6-14.6)
[2021-05-04 08:00] VITALS: BP 114/71
[2021-05-04 08:04] LABS: PHOSPHORUS 5.2 mg/dL (2.5-4.9)
[2021-05-04] MEDS: NYSTATIN POWDER 15GM TOP SCH ×3 (09:00→18:17)
[2021-05-04] MEDS: FOLIC ACID/VITAMIN B COMP W-C TABLET PO SCH (09:48)
[2021-05-04] MEDS: SODIUM CHLORIDE 0.9% 1,000 ML IV SCH (10:15)
[2021-05-04 12:00] VITALS: BP 115/81
[2021-05-04 16:00] VITALS: BP 124/81
[2021-05-04] MEDS: CEFEPIME 1,000 MG in DEXTROSE 5% WATER 50 ML IV SCH (19:56)
[2021-05-04 20:00] VITALS: BP 125/72
[2021-05-05] VITALS: BP 139/85
[2021-05-05] MEDS: SODIUM CHLORIDE 0.9% 1,000 ML IV SCH ×2 (00:06→15:21)
[2021-05-05 04:00] VITALS: BP 133/79
[2021-05-05] MEDS: HYDROCODONE/ACETAMINOPHEN 10/325MG TABLET PO PRN ×2 (05:49→15:22)
[2021-05-05] MEDS: VANCOMYCIN 1500MG in DEXTROSE 5% WATER 250ML IV SCH (06:38)
[2021-05-05 07:14] LABS: HEMATOCRIT. 27.4 % (42.0-52.0); LYMPHOCYTES % 17.3 % (20.0-50.0); MEAN CORPUSCULAR HEMOGLOBIN 24.9 pg (28.0-32.0); MEAN CORPUSCULAR VOLUME 75.6 fL (80.0-94.0); MEAN PLATELET VOLUME 6.9 fl (7.4-10.4); MONOCYTES % 12.4 % (2.0-8.0); NEUTROPHILS % 66.3 % (40.0-76.0); PLATELET 446 x1000/uL (130-400); RED BLOOD CELL COUNT 3.63 mill/uL (4.7-6.1); RED CELL DISTRIBUTION WIDTH 19.2 % (11.6-14.6)
[2021-05-05] MEDS: BLOOD SUGAR DIAGNOSTIC STRIP TEST SCH ×4 (07:26→21:16)
[2021-05-05 07:30] LABS: PHOSPHORUS 4.7 mg/dL (2.5-4.9)
[2021-05-05] MEDS: INSULIN LISPRO 100 UNITS/ML SUBCUT SCH ×4 (07:50→21:00)
[2021-05-05 08:00] VITALS: BP 115/71
[2021-05-05] MEDS: NYSTATIN POWDER 15GM TOP SCH ×3 (10:35→18:09)
[2021-05-05] MEDS: FOLIC ACID/VITAMIN B COMP W-C TABLET PO SCH (10:36)
[2021-05-05 12:00] VITALS: BP 127/76
[2021-05-05] MEDS: CEFEPIME 1,000 MG in DEXTROSE 5% WATER 50 ML IV SCH ×2 (15:21→20:55)
[2021-05-05 16:00] VITALS: BP 119/75
[2021-05-05 20:00] VITALS: BP 132/83
[2021-05-06] VITALS: BP 137/81
[2021-05-06] MEDS: SODIUM CHLORIDE 0.9% 1,000 ML IV SCH (03:10)
[2021-05-06 04:00] VITALS: BP 145/76
[2021-05-06] MEDS: CEFEPIME 1,000 MG in DEXTROSE 5% WATER 50 ML IV SCH ×3 (04:44→20:19)
[2021-05-06] MEDS: HYDROCODONE/ACETAMINOPHEN 10/325MG TABLET PO PRN ×2 (04:47→15:16)
[2021-05-06 06:36] LABS: BASOPHILS % 1.2 % (0.0-2.0); EOSINOPHILS % 3.3 % (0.0-5.0); HEMOGLOBIN. 9.1 g/dL (14.0-18.0); LYMPHOCYTES % 15.7 % (20.0-50.0); MEAN CORPUSCULAR VOLUME 77.1 fL (80.0-94.0); NEUTROPHILS % 68.8 % (40.0-76.0); RED BLOOD CELL COUNT 3.63 mill/uL (4.7-6.1)
[2021-05-06 06:57] LABS: PHOSPHORUS 4.2 mg/dL (2.5-4.9)
[2021-05-06] MEDS: BLOOD SUGAR DIAGNOSTIC STRIP TEST SCH ×4 (07:12→20:19)
[2021-05-06] MEDS: INSULIN LISPRO 100 UNITS/ML SUBCUT SCH ×4 (07:50→20:35)
[2021-05-06 08:00] VITALS: BP 144/90
[2021-05-06] MEDS: FOLIC ACID/VITAMIN B COMP W-C TABLET PO SCH (09:48)
[2021-05-06] MEDS: NYSTATIN POWDER 15GM TOP SCH ×3 (09:50→18:23)
[2021-05-06 12:00] VITALS: BP 141/86
[2021-05-06 13:41] LABS: PLATELET ESTIMATE NORMAL
[2021-05-06 13:42] LABS: MEAN PLATELET VOLUME 7.3 fl (7.4-10.4); PLATELET 271 x1000/uL (130-400)
[2021-05-06] MEDS ORDERED: MAGNESIUM 2 G PREMIX 50 ML IV NR (14:00)
[2021-05-06 16:00] VITALS: BP 141/92
[2021-05-06] MEDS: VANCOMYCIN 1500MG in DEXTROSE 5% WATER 250ML IV SCH (18:20)
[2021-05-06 20:00] VITALS: BP 137/87
[2021-05-07] MEDS: HYDROCODONE/ACETAMINOPHEN 10/325MG TABLET PO PRN ×2 (00:15→09:46)
[2021-05-07 00:33] VITALS: BP 166/89
[2021-05-07 04:00] VITALS: BP 149/84
[2021-05-07] MEDS: CEFEPIME 1,000 MG in DEXTROSE 5% WATER 50 ML IV SCH ×3 (05:06→20:56)
[2021-05-07] MEDS: SODIUM CHLORIDE 0.9% 1,000 ML IV SCH ×2 (05:07→17:35)
[2021-05-07 06:08] LABS: CHLORIDE 117 mEq/L (98-107)
[2021-05-07 06:17] LABS: PHOSPHORUS 3.9 mg/dL (2.5-4.9)
[2021-05-07] MEDS: BLOOD SUGAR DIAGNOSTIC STRIP TEST SCH ×4 (06:26→21:08)
[2021-05-07] MEDS: INSULIN LISPRO 100 UNITS/ML SUBCUT SCH ×4 (07:50→21:00)
[2021-05-07 08:00] VITALS: BP 139/93
[2021-05-07 08:29] LABS: BASOPHILS % 1.4 % (0.0-2.0); MEAN CORPUSCULAR HEMOGLOBIN 24.3 pg (28.0-32.0); MEAN CORPUSCULAR VOLUME 76.3 fL (80.0-94.0); MEAN PLATELET VOLUME 7.6 fl (7.4-10.4); MONOCYTES % 10.9 % (2.0-8.0); NEUTROPHILS % 63.7 % (40.0-76.0); PLATELET 300 x1000/uL (130-400); RED BLOOD CELL COUNT 5.01 mill/uL (4.7-6.1); RED CELL DISTRIBUTION WIDTH 19.1 % (11.6-14.6)
[2021-05-07 08:35] LABS: HEMATOCRIT. 38.2 % (42.0-52.0); HEMOGLOBIN. 12.2 g/dL (14.0-18.0)
[2021-05-07] MEDS ORDERED: AMLODIPINE 5MG TABLET PO SCH (09:30)
[2021-05-07] MEDS: NYSTATIN POWDER 15GM TOP SCH ×3 (09:38→17:35)
[2021-05-07 12:00] VITALS: BP 147/87
[2021-05-07 16:00] VITALS: BP 137/90
[2021-05-07 20:00] VITALS: BP 123/69
[2021-05-08] VITALS: BP 160/97
[2021-05-08] MEDS: HYDROCODONE/ACETAMINOPHEN 10/325MG TABLET PO PRN ×2 (01:37→11:58)
[2021-05-08] MEDS: CEFEPIME 1,000 MG in DEXTROSE 5% WATER 50 ML IV SCH ×3 (03:04→20:45)
[2021-05-08 04:00] VITALS: BP 150/95
[2021-05-08] MEDS: VANCOMYCIN 1500MG in DEXTROSE 5% WATER 250ML IV SCH (05:54)
[2021-05-08] MEDS: BLOOD SUGAR DIAGNOSTIC STRIP TEST SCH ×4 (06:53→20:45)
[2021-05-08] MEDS: SODIUM CHLORIDE 0.9% 1,000 ML IV SCH (07:18)
[2021-05-08 07:33] LABS: BASOPHILS % 1.2 % (0.0-2.0); EOSINOPHILS % 3.8 % (0.0-5.0); HEMATOCRIT. 26.5 % (42.0-52.0); HEMOGLOBIN. 8.6 g/dL (14.0-18.0); LYMPHOCYTES % 18.1 % (20.0-50.0); MEAN CORPUSCULAR HEMOGLOBIN 24.8 pg (28.0-32.0); MEAN CORPUSCULAR VOLUME 76.3 fL (80.0-94.0); MEAN PLATELET VOLUME 7.3 fl (7.4-10.4); MONOCYTES % 11.4 % (2.0-8.0); NEUTROPHILS % 65.5 % (40.0-76.0); PLATELET 352 x1000/uL (130-400); RED BLOOD CELL COUNT 3.48 mill/uL (4.7-6.1); RED CELL DISTRIBUTION WIDTH 19.3 % (11.6-14.6)
[2021-05-08] MEDS: INSULIN LISPRO 100 UNITS/ML SUBCUT SCH ×4 (07:50→20:45)
[2021-05-08 08:00] LABS: CHLORIDE 117 mEq/L (98-107)
[2021-05-08 08:16] VITALS: BP 162/92
[2021-05-08] MEDS: AMLODIPINE 5MG TABLET PO SCH ×2 (09:34→20:45)
[2021-05-08] MEDS: NYSTATIN POWDER 15GM TOP SCH ×3 (09:35→17:16)
[2021-05-08 12:31] VITALS: BP_DIAS 88
[2021-05-08 16:00] VITALS: BP 148/70
[2021-05-08 20:00] VITALS: BP 138/88
[2021-05-09] VITALS: BP 130/75
[2021-05-09] MEDS: CEFEPIME 1,000 MG in DEXTROSE 5% WATER 50 ML IV SCH ×3 (03:50→20:19)
[2021-05-09 04:00] VITALS: BP 115/80
[2021-05-09] MEDS ORDERED: HYDROCODONE/ACETAMINOPHEN 10/325MG TABLET PO PRN (04:30)
[2021-05-09] MEDS: BLOOD SUGAR DIAGNOSTIC STRIP TEST SCH ×4 (06:36→21:12)
[2021-05-09] MEDS: INSULIN LISPRO 100 UNITS/ML SUBCUT SCH ×4 (07:50→21:00)
[2021-05-09 08:00] VITALS: BP 172/99
[2021-05-09 08:17] LABS: PHOSPHORUS 4.5 mg/dL (2.5-4.9)
[2021-05-09 08:42] LABS: HEMATOCRIT. 28.1 % (42.0-52.0); HEMOGLOBIN. 8.9 g/dL (14.0-18.0); MEAN CORPUSCULAR HEMOGLOBIN 24.7 pg (28.0-32.0); MEAN CORPUSCULAR VOLUME 77.5 fL (80.0-94.0); RED BLOOD CELL COUNT 3.62 mill/uL (4.7-6.1); RED CELL DISTRIBUTION WIDTH 19.7 % (11.6-14.6)
[2021-05-09] MEDS: AMLODIPINE 5MG TABLET PO SCH ×2 (09:20→21:12)
[2021-05-09] MEDS: NYSTATIN POWDER 15GM TOP SCH ×3 (09:20→18:20)
[2021-05-09] MEDS ORDERED: NALOXONE HCL 0.4MG/ML VIAL IV PRN (11:00)
[2021-05-09 12:00] VITALS: BP 158/70
[2021-05-09] MEDS: HYDROCODONE/ACETAMINOPHEN 10/325MG TABLET PO PRN ×2 (13:19→20:19)
[2021-05-09 14:55] LABS: PLATELET ESTIMATE NORMAL
[2021-05-09 14:56] LABS: MEAN PLATELET VOLUME 7.8 fl (7.4-10.4); PLATELET 286 x1000/uL (130-400)
[2021-05-09 16:00] VITALS: BP 117/71
[2021-05-09] MEDS: VANCOMYCIN 1500MG in DEXTROSE 5% WATER 250ML IV SCH (18:15)
[2021-05-09 20:00] VITALS: BP 146/87
[2021-05-10] VITALS: BP 136/82
[2021-05-10 04:00] VITALS: BP 130/80
[2021-05-10] MEDS: CEFEPIME 1,000 MG in DEXTROSE 5% WATER 50 ML IV SCH ×3 (04:04→22:47)
[2021-05-10 06:34] LABS: PHOSPHORUS 4.2 mg/dL (2.5-4.9)
[2021-05-10] MEDS: INSULIN LISPRO 100 UNITS/ML SUBCUT SCH ×4 (07:50→20:52)
[2021-05-10] MEDS: BLOOD SUGAR DIAGNOSTIC STRIP TEST SCH ×4 (07:55→20:52)
[2021-05-10 08:00] VITALS: BP 144/90
[2021-05-10] MEDS: NYSTATIN POWDER 15GM TOP SCH ×3 (09:00→17:00)
[2021-05-10] MEDS: AMLODIPINE 5MG TABLET PO SCH ×2 (09:26→22:47)
[2021-05-10 12:00] VITALS: BP 157/99
[2021-05-10] MEDS ORDERED: MAGNESIUM 2 G PREMIX 50 ML IV SCH (14:00)
[2021-05-10 15:55] LABS: BASOPHILS % 0.9 % (0.0-2.0); EOSINOPHILS % 3.3 % (0.0-5.0); HEMATOCRIT. 26.5 % (42.0-52.0); HEMOGLOBIN. 8.9 g/dL (14.0-18.0); LYMPHOCYTES % 17.4 % (20.0-50.0); MEAN CORPUSCULAR HEMOGLOBIN 25.6 pg (28.0-32.0); MEAN CORPUSCULAR VOLUME 76.4 fL (80.0-94.0); MEAN PLATELET VOLUME 7.4 fl (7.4-10.4); MONOCYTES % 10.1 % (2.0-8.0); NEUTROPHILS % 68.3 % (40.0-76.0); PLATELET 308 x1000/uL (130-400); RED BLOOD CELL COUNT 3.47 mill/uL (4.7-6.1); RED CELL DISTRIBUTION WIDTH 19.4 % (11.6-14.6)
[2021-05-10] MEDS: HYDROCODONE/ACETAMINOPHEN 10/325MG TABLET PO PRN (16:10)
[2021-05-10] MEDS: VANCOMYCIN HCL 1000 MG/20 ML ORAL PO SCH (18:30)
[2021-05-10 20:00] VITALS: BP 142/88
[2021-05-11] VITALS: BP 140/92
[2021-05-11] MEDS: VANCOMYCIN HCL 1000 MG/20 ML ORAL PO SCH ×5 (00:11→23:52)
[2021-05-11 04:00] VITALS: BP 139/52
[2021-05-11] MEDS: VANCOMYCIN 1500MG in DEXTROSE 5% WATER 250ML IV SCH (05:39)
[2021-05-11] MEDS: CEFEPIME 1,000 MG in DEXTROSE 5% WATER 50 ML IV SCH ×3 (05:39→20:58)
[2021-05-11] MEDS: BLOOD SUGAR DIAGNOSTIC STRIP TEST SCH (06:27)
[2021-05-11] MEDS: HYDROCODONE/ACETAMINOPHEN 10/325MG TABLET PO PRN ×2 (06:51→18:59)
[2021-05-11] MEDS: INSULIN LISPRO 100 UNITS/ML SUBCUT SCH (07:50)
[2021-05-11 08:00] VITALS: BP 151/100
[2021-05-11] MEDS: AMLODIPINE 5MG TABLET PO SCH ×2 (09:27→20:59)
[2021-05-11] MEDS: NYSTATIN POWDER 15GM TOP SCH ×3 (09:28→17:21)
[2021-05-11 12:00] VITALS: BP 128/81
[2021-05-11 16:00] VITALS: BP 135/84
[2021-05-11 16:26] LABS: BASOPHILS % 0.8 % (0.0-2.0); EOSINOPHILS % 3.8 % (0.0-5.0); HEMATOCRIT. 27.5 % (42.0-52.0); LYMPHOCYTES % 20.7 % (20.0-50.0); MEAN CORPUSCULAR HEMOGLOBIN 24.8 pg (28.0-32.0); MEAN CORPUSCULAR VOLUME 76.2 fL (80.0-94.0); MEAN PLATELET VOLUME 7.1 fl (7.4-10.4); MONOCYTES % 11.4 % (2.0-8.0); NEUTROPHILS % 63.3 % (40.0-76.0); PLATELET 306 x1000/uL (130-400); RED BLOOD CELL COUNT 3.61 mill/uL (4.7-6.1); RED CELL DISTRIBUTION WIDTH 20.3 % (11.6-14.6)
[2021-05-11 17:14] LABS: PHOSPHORUS 3.6 mg/dL (2.5-4.9)
[2021-05-11 20:00] VITALS: BP 146/85
[2021-05-12] VITALS: BP 140/89
[2021-05-12 04:00] VITALS: BP 132/80
[2021-05-12] MEDS: VANCOMYCIN HCL 1000 MG/20 ML ORAL PO SCH ×4 (05:04→23:00)
[2021-05-12] MEDS: CEFEPIME 1,000 MG in DEXTROSE 5% WATER 50 ML IV SCH ×3 (05:04→19:56)
[2021-05-12 05:56] LABS: BASOPHILS % 0.9 % (0.0-2.0); EOSINOPHILS % 4.2 % (0.0-5.0); HEMATOCRIT. 29.8 % (42.0-52.0); HEMOGLOBIN. 9.5 g/dL (14.0-18.0); LYMPHOCYTES % 23.7 % (20.0-50.0); MEAN CORPUSCULAR HEMOGLOBIN 24.8 pg (28.0-32.0); MEAN CORPUSCULAR VOLUME 77.7 fL (80.0-94.0); MEAN PLATELET VOLUME 7.8 fl (7.4-10.4); MONOCYTES % 10.9 % (2.0-8.0); NEUTROPHILS % 60.3 % (40.0-76.0); PLATELET 305 x1000/uL (130-400); RED BLOOD CELL COUNT 3.83 mill/uL (4.7-6.1); RED CELL DISTRIBUTION WIDTH 19.7 % (11.6-14.6)
[2021-05-12 08:00] VITALS: BP 133/88
[2021-05-12] MEDS: AMLODIPINE 5MG TABLET PO SCH ×2 (10:49→19:56)
[2021-05-12] MEDS: NYSTATIN POWDER 15GM TOP SCH ×3 (10:50→16:38)
[2021-05-12] MEDS: HYDROCODONE/ACETAMINOPHEN 10/325MG TABLET PO PRN ×2 (10:52→19:57)
[2021-05-12 12:00] VITALS: BP 136/84
[2021-05-12 16:00] VITALS: BP 147/81
[2021-05-12] MEDS: VANCOMYCIN 1500MG in DEXTROSE 5% WATER 250ML IV SCH (18:15)
[2021-05-12 20:00] VITALS: BP 135/73
[2021-05-13] VITALS: BP 115/74
[2021-05-13 04:00] VITALS: BP 117/71
[2021-05-13] MEDS: CEFEPIME 1,000 MG in DEXTROSE 5% WATER 50 ML IV SCH ×3 (05:00→20:59)
[2021-05-13] MEDS: VANCOMYCIN HCL 1000 MG/20 ML ORAL PO SCH ×3 (05:00→18:39)
[2021-05-13 08:00] VITALS: BP 142/90
[2021-05-13 09:51] LABS: BASOPHILS % 0.9 % (0.0-2.0); EOSINOPHILS % 5.3 % (0.0-5.0); HEMATOCRIT. 27.4 % (42.0-52.0); LYMPHOCYTES % 24.9 % (20.0-50.0); MEAN CORPUSCULAR HEMOGLOBIN 25.1 pg (28.0-32.0); MEAN CORPUSCULAR VOLUME 76.4 fL (80.0-94.0); MEAN PLATELET VOLUME 7.7 fl (7.4-10.4); MONOCYTES % 12.4 % (2.0-8.0); NEUTROPHILS % 56.5 % (40.0-76.0); PLATELET 282 x1000/uL (130-400); RED BLOOD CELL COUNT 3.59 mill/uL (4.7-6.1); RED CELL DISTRIBUTION WIDTH 19.7 % (11.6-14.6)
[2021-05-13] MEDS: NYSTATIN POWDER 15GM TOP SCH ×3 (10:04→18:39)
[2021-05-13] MEDS: AMLODIPINE 5MG TABLET PO SCH ×2 (10:04→21:03)
[2021-05-13 10:16] LABS: PHOSPHORUS 4.5 mg/dL (2.5-4.9)
[2021-05-13 12:00] VITALS: BP 144/94
[2021-05-13] MEDS: HYDROCODONE/ACETAMINOPHEN 10/325MG TABLET PO PRN (13:27)
[2021-05-13] MEDS ORDERED: MAGNESIUM 2 G PREMIX 50 ML IV SCH (15:00)
[2021-05-13 16:00] VITALS: BP 132/74
[2021-05-13 20:00] VITALS: BP 107/64
[2021-05-14] VITALS: BP 115/76
[2021-05-14] MEDS: VANCOMYCIN HCL 1000 MG/20 ML ORAL PO SCH ×5 (01:07→18:03)
[2021-05-14] MEDS: HYDROCODONE/ACETAMINOPHEN 10/325MG TABLET PO PRN ×2 (01:18→21:32)
[2021-05-14 04:00] VITALS: BP 134/83
[2021-05-14] MEDS: CEFEPIME 1,000 MG in DEXTROSE 5% WATER 50 ML IV SCH ×4 (04:37→21:27)
[2021-05-14] MEDS: VANCOMYCIN 1500MG in DEXTROSE 5% WATER 250ML IV SCH (06:35)
[2021-05-14 08:00] VITALS: BP 119/70
[2021-05-14] MEDS: AMLODIPINE 5MG TABLET PO SCH ×2 (08:59→21:33)
[2021-05-14] MEDS: NYSTATIN POWDER 15GM TOP SCH ×4 (09:00→18:04)
[2021-05-14] MEDS ORDERED: MAGNESIUM 2 G PREMIX 50 ML IV NR (15:30)
[2021-05-14 16:00] VITALS: BP 133/85
[2021-05-14 20:00] VITALS: BP 130/77
[2021-05-15] VITALS: BP 119/69
[2021-05-15] MEDS ORDERED: NALOXONE HCL 0.4MG/ML VIAL IV PRN (00:30)
[2021-05-15] MEDS: VANCOMYCIN 1500MG in DEXTROSE 5% WATER 250ML IV SCH ×2 (00:37→18:32)
[2021-05-15] MEDS: VANCOMYCIN HCL 1000 MG/20 ML ORAL PO SCH ×4 (01:05→18:32)
[2021-05-15 04:00] VITALS: BP 111/79
[2021-05-15] MEDS: CEFEPIME 1,000 MG in DEXTROSE 5% WATER 50 ML IV SCH ×3 (04:34→22:02)
[2021-05-15 08:00] VITALS: BP 127/78
[2021-05-15 09:09] LABS: HEMATOCRIT. 28.9 % (42.0-52.0); HEMOGLOBIN. 9.3 g/dL (14.0-18.0); MEAN CORPUSCULAR HEMOGLOBIN 24.7 pg (28.0-32.0); MEAN PLATELET VOLUME 7.7 fl (7.4-10.4); PLATELET 247 x1000/uL (130-400); RED BLOOD CELL COUNT 3.75 mill/uL (4.7-6.1); RED CELL DISTRIBUTION WIDTH 20.4 % (11.6-14.6)
[2021-05-15] MEDS: AMLODIPINE 5MG TABLET PO SCH ×2 (09:34→22:03)
[2021-05-15] MEDS: NYSTATIN POWDER 15GM TOP SCH ×3 (09:35→18:39)
[2021-05-15 09:36] LABS: PHOSPHORUS 4.4 mg/dL (2.5-4.9)
[2021-05-15 12:00] VITALS: BP 157/93
[2021-05-15] MEDS: HYDROCODONE/ACETAMINOPHEN 10/325MG TABLET PO PRN (18:33)
[2021-05-15 20:00] VITALS: BP 130/81
[2021-05-15 20:21] LABS: PLATELET ESTIMATE NORMAL
[2021-05-16] VITALS: BP 133/85
[2021-05-16] MEDS: VANCOMYCIN HCL 1000 MG/20 ML ORAL PO SCH ×4 (00:09→17:33)
[2021-05-16 04:00] VITALS: BP 118/78
[2021-05-16] MEDS: CEFEPIME 1,000 MG in DEXTROSE 5% WATER 50 ML IV SCH ×3 (04:59→20:10)
[2021-05-16 08:00] VITALS: BP 134/79
[2021-05-16] MEDS: AMLODIPINE 5MG TABLET PO SCH ×2 (08:45→21:24)
[2021-05-16] MEDS: HYDROCODONE/ACETAMINOPHEN 10/325MG TABLET PO PRN ×2 (11:16→19:18)
[2021-05-16 11:46] LABS: BASOPHILS % 0.7 % (0.0-2.0); EOSINOPHILS % 4.4 % (0.0-5.0); HEMATOCRIT. 27.9 % (42.0-52.0); HEMOGLOBIN. 9.1 g/dL (14.0-18.0); LYMPHOCYTES % 20.1 % (20.0-50.0); MEAN CORPUSCULAR HEMOGLOBIN 25.7 pg (28.0-32.0); MEAN CORPUSCULAR VOLUME 78.4 fL (80.0-94.0); MONOCYTES % 13.4 % (2.0-8.0); NEUTROPHILS % 61.4 % (40.0-76.0); PLATELET 228 x1000/uL (130-400); RED BLOOD CELL COUNT 3.56 mill/uL (4.7-6.1); RED CELL DISTRIBUTION WIDTH 20.5 % (11.6-14.6)
[2021-05-16 11:49] LABS: PHOSPHORUS 4.1 mg/dL (2.5-4.9)
[2021-05-16 12:00] VITALS: BP 136/90
[2021-05-16 16:00] VITALS: BP 137/83
[2021-05-16 21:11] VITALS: BP 117/80
[2021-05-17 00:17] VITALS: BP 135/75
[2021-05-17] MEDS: VANCOMYCIN HCL 1000 MG/20 ML ORAL PO SCH ×4 (00:43→18:32)
[2021-05-17 04:00] VITALS: BP 134/88
[2021-05-17] MEDS: CEFEPIME 1,000 MG in DEXTROSE 5% WATER 50 ML IV SCH ×3 (05:02→22:00)
[2021-05-17] MEDS: HYDROCODONE/ACETAMINOPHEN 10/325MG TABLET PO PRN ×2 (05:12→17:06)
[2021-05-17] MEDS: VANCOMYCIN 1500MG in DEXTROSE 5% WATER 250ML IV SCH (05:40)
[2021-05-17 08:00] VITALS: BP 142/92
[2021-05-17] MEDS: AMLODIPINE 5MG TABLET PO SCH ×2 (08:32→21:59)
[2021-05-17 09:37] LABS: BASOPHILS % 0.6 % (0.0-2.0); EOSINOPHILS % 4.7 % (0.0-5.0); HEMATOCRIT. 28.8 % (42.0-52.0); HEMOGLOBIN. 9.2 g/dL (14.0-18.0); MEAN CORPUSCULAR HEMOGLOBIN 24.6 pg (28.0-32.0); MEAN CORPUSCULAR VOLUME 76.6 fL (80.0-94.0); MEAN PLATELET VOLUME 7.8 fl (7.4-10.4); MONOCYTES % 11.9 % (2.0-8.0); NEUTROPHILS % 61.8 % (40.0-76.0); PLATELET 232 x1000/uL (130-400); RED BLOOD CELL COUNT 3.76 mill/uL (4.7-6.1); RED CELL DISTRIBUTION WIDTH 20.8 % (11.6-14.6)
[2021-05-17 09:56] LABS: PHOSPHORUS 4.5 mg/dL (2.5-4.9)
[2021-05-17 12:00] VITALS: BP 138/82
[2021-05-17 16:00] VITALS: BP 168/99
[2021-05-17 20:00] VITALS: BP 143/81
[2021-05-18] VITALS: BP 136/85
[2021-05-18] MEDS: VANCOMYCIN HCL 1000 MG/20 ML ORAL PO SCH ×3 (00:33→13:26)
[2021-05-18] MEDS: HYDROCODONE/ACETAMINOPHEN 10/325MG TABLET PO PRN ×2 (01:58→14:50)
[2021-05-18 04:00] VITALS: BP 132/80
[2021-05-18] MEDS: CEFEPIME 1,000 MG in DEXTROSE 5% WATER 50 ML IV SCH ×2 (05:34→14:00)
[2021-05-18] MEDS: AMLODIPINE 5MG TABLET PO SCH (09:32)
[2021-05-18 10:51] VITALS: BP 137/86
[2021-05-18 14:50] VITALS: BP 137/86
[2021-05-19] MEDS ORDERED: VANCOMYCIN 1250MG in DEXTROSE 5% WATER 250ML IV SCH (06:00)
== END 2021-05-18 15:03 | DRG 710 ==
LOC: ER 03:33 → 6WST 05:14 → ENRESERV 07:29 → 6EST 04-14 10:53
PROVIDERS: ADMIT Internal Medicine; ATTEND Internal Medicine
PROC: 0QBQ0ZZ Excision of Right Toe Phalanx, Open Approach (ICD-10-PCS; principal; 2021-04-02)
PROC: 0QBN0ZZ Excision of Right Metatarsal, Open Approach (ICD-10-PCS; 2021-04-04)
PROC: 5A1D70Z Performance of Urinary Filtration, Intermittent, Less than 6 Hours Per Day (ICD-10-PCS; 2021-04-08)
PROC: 5A1D70Z Performance of Urinary Filtration, Intermittent, Less than 6 Hours Per Day (ICD-10-PCS; 2021-04-09)
PROC: 5A1D70Z Performance of Urinary Filtration, Intermittent, Less than 6 Hours Per Day (ICD-10-PCS; 2021-04-10)
PROC: 5A1D70Z Performance of Urinary Filtration, Intermittent, Less than 6 Hours Per Day (ICD-10-PCS; 2021-04-12)
PROC: 5A1D70Z Performance of Urinary Filtration, Intermittent, Less than 6 Hours Per Day (ICD-10-PCS; 2021-04-14)
PROC: 5A1D70Z Performance of Urinary Filtration, Intermittent, Less than 6 Hours Per Day (ICD-10-PCS; 2021-04-16)
PROC: 5A1D70Z Performance of Urinary Filtration, Intermittent, Less than 6 Hours Per Day (ICD-10-PCS; 2021-04-18)
PROC: 5A1D70Z Performance of Urinary Filtration, Intermittent, Less than 6 Hours Per Day (ICD-10-PCS; 2021-04-20)
PROC: 5A1D70Z Performance of Urinary Filtration, Intermittent, Less than 6 Hours Per Day (ICD-10-PCS; 2021-04-23)
PROC: 5A1D70Z Performance of Urinary Filtration, Intermittent, Less than 6 Hours Per Day (ICD-10-PCS; 2021-04-25)
PROC: 02HV33Z Insertion of Infusion Device into Superior Vena Cava, Percutaneous Approach (ICD-10-PCS; 2021-05-03)
PROC: 0KBS0ZZ Excision of Right Lower Leg Muscle, Open Approach (ICD-10-PCS; 2021-05-17)
DX: A41.02 Sepsis due to Methicillin resistant Staphylococcus aureus (principal); E43 Unspecified severe protein-calorie malnutrition; I13.2 Hypertensive heart and chronic kidney disease with heart failure and with stage 5 chronic kidney disease, or end stage renal disease; N17.9 Acute kidney failure, unspecified; E11.22 Type 2 diabetes mellitus with diabetic chronic kidney disease; E66.01 Morbid (severe) obesity due to excess calories; G82.20 Paraplegia, unspecified; M86.171 Other acute osteomyelitis, right ankle and foot; M84.477A Pathological fracture, right toe(s), initial encounter for fracture; E11.621 Type 2 diabetes mellitus with foot ulcer; I50.33 Acute on chronic diastolic (congestive) heart failure; E11.65 Type 2 diabetes mellitus with hyperglycemia; I48.91 Unspecified atrial fibrillation; N18.6 End stage renal disease; E87.1 Hypo-osmolality and hyponatremia; E87.6 Hypokalemia; E87.8 Other disorders of electrolyte and fluid balance, not elsewhere classified; R65.20 Severe sepsis without septic shock; J45.909 Unspecified asthma, uncomplicated; M54.5 Low back pain; D64.9 Anemia, unspecified; E11.69 Type 2 diabetes mellitus with other specified complication; G89.29 Other chronic pain; J98.11 Atelectasis; K52.9 Noninfective gastroenteritis and colitis, unspecified; Z20.822 Contact with and (suspected) exposure to COVID-19; K59.00 Constipation, unspecified; M86.671 Other chronic osteomyelitis, right ankle and foot; L97.519 Non-pressure chronic ulcer of other part of right foot with unspecified severity; N39.0 Urinary tract infection, site not specified; Z68.43 Body mass index [BMI] 50.0-59.9, adult; Z74.01 Bed confinement status; Z82.49 Family history of ischemic heart disease and other diseases of the circulatory system; Z83.3 Family history of diabetes mellitus; Z86.14 Personal history of Methicillin resistant Staphylococcus aureus infection; Z99.2 Dependence on renal dialysis
CPT/HCPCS: 36415; 36556; 36600; 71045; 72128; 72131; 73120; 73630; 74018; 74176; 76700; 76770; 76870; 76937; 80048; 80053; 80061; 80076; 80202; 80305; 81003; 82140; 82375; 82533; 82550; 82805; 82962; 83520; 83605; 83735; 84100; 84132; 84145; 84443; 84484; 85025; 85651; 86140; 86141; 86160; 86256; 86705; 86706; 86709; 86803; 86850; 86900; 87070; 87075; 87077; 87186; 87340; 87426; 88304; 93005; 93306; 93923; 93970; 93976; 97110; 97162; 97166; 97530; 99291; A4565; A6261; C1725; C1752; C1769; C1887; J0360; J0692; J0696; J1642; J1644; J1815; J1940; J2020; J2060; J2250; J2270; J2405; J2543; J3370; J3475; J3490; J7030; J7040; J7060; U0003; U0005